=== PATIENT | male | born 1955 | race Caucasian/White ===

== ENCOUNTER → 2017-04-29 | Outpatient (CLI) | payer MEDICARE | END | disposition home or self-care (01) | LOC: LABPAT 10:05 | PROVIDERS: ATTEND Orthopaedic Surgery | DX: Z01.812 Encounter for preprocedural laboratory examination (principal) | CPT/HCPCS: 86850; 86900; 86901; 87070 ==

== ENCOUNTER 2017-05-09 05:45 | Inpatient (IN) | payer MEDICARE ==
[2017-04-29 15:03] VITALS: BMI 34.0
--- NOTE | 2017-05-08 13:39 | HP ---
DATE OF SURGERY: 05/09/2017 Everardo Charles is a 61-year-old patient seen with symptomatic right hip osteoarthritis. After treatment options discussed, he elected to proceed with direct anterior right total hip arthroplasty. Consent was obtained. Medical clearance was provided per Dr. Jan Foster. Cardiac clearance by Dr. Hawkins. Pulmonary clearance was provided by Dr. Acosta. Past medical history is congestive heart failure, chronic obstructive pulmonary disease, hypercholesterolemia, hypertension. Past surgical history is cholecystectomy, herniorrhaphy, lumbar surgery, hand surgery. DAILY MEDICATIONS: Xarelto, spironolactone, metoprolol, Lisinopril, Lasix, atorvastatin. ALLERGIES: PENICILLIN, LATEX, ZOSYN. SOCIAL HISTORY: Patient denies current tobacco use. PHYSICAL EVALUATION OF THE RIGHT HIP: There is very limited range of motion with severe pain. Positive hip impingement sign. Right lower extremity is about 1 cm shorter than the left. Straight leg raise is negative. Distal neurovascular exam is intact. Radiographs of the right hip reveal severe osteoarthritis. IMPRESSION: Right hip osteoarthritis. PLAN: Direct anterior right total hip arthroplasty. ESEQUIEL
[~2017-05-09 05:45] MED LIST: ACETAMINOPHEN TAB 500 MG TAB PO ONE; CLINDAMYCIN 900 MG in DEXTROSE 5% IN WATER 50 ML IVPB ONE; DEXAMETHASONE SOD PHOSPHATE 10 MG/ML 1 ML VIAL IV ONE; HYDROmorphone 1 MG/ML 1 ML SYRINGE IVP PRN; LACTATED RINGERS 1,000 ML IV SCH; MELOXICAM 7.5 MG TAB PO ONE; MIDAZOLAM 2 MG/2 ML VIAL IV PRN; ONDANSETRON 4 MG/2 ML VIAL IVP ONE; SCOPOLAMINE 1.5MG/72HR PATCH TRANSDERM ONE; TRANEXAMIC ACID 1,000 MG in SODIUM CHLORIDE 0.9% 100 ML IVPB ONE
[2017-05-09 07:14] LABS: Prothrombin Time 9.9 sec (9.0-12.0)
[2017-05-09] MEDS ORDERED: MIDAZOLAM 2 MG/2 ML VIAL ONE (07:29)
[2017-05-09] MEDS ORDERED: PROPOFOL 10 MG/ML 20 ML VIAL IV ONE (07:29)
[2017-05-09] MEDS ORDERED: SODIUM CHLORIDE 0.9% 100 ML BAG ONE (07:29)
[2017-05-09] MEDS ORDERED: ePHEDrine 50 MG/ML 1 ML AMP ONE (07:29)
[2017-05-09] MEDS ORDERED: TRANEXAMIC ACID 1,000 MG/10 ML VIAL ONE (07:29)
[2017-05-09] MEDS ORDERED: PHENYLEPHRINE-0.9% NACL SYG 1 MG/10 ML SYRINGE ONE (07:29)
[2017-05-09] MEDS ORDERED: ROPIVACAINE 246.25 MG, EPINEPHrine 0.5 MG, KETOROLAC 30 MG, cloNIDine HCL/PF 80 MCG, WA... MISCELLANE ONE ×5 (08:49)
[2017-05-09] MEDS ORDERED: NALOXONE 0.4 MG/ML 1 ML VIAL IV PRN (10:00)
[2017-05-09] MEDS ORDERED: HYDROmorphone 1 MG/ML 1 ML SYRINGE IVP PRN ×3 (10:00)
[2017-05-09] MEDS ORDERED: ONDANSETRON 4 MG/2 ML VIAL IVP PRN (10:00)
[2017-05-09] MEDS ORDERED: hydrOXYzine PAMOATE 25 MG CAP PO PRN (10:00)
--- NOTE | 2017-05-09 10:00 | P.OP ---
Date of Procedure: 05/09/17 Preoperative Diagnosis: Right hip osteoarthritis Postoperative Diagnosis: Right hip osteoarthritis Procedure(s) Performed: Direct anterior right total hip arthroplasty Implants: 1. Depuy Corail KA size 16 standard collar cementless femoral stem 2. Depuy pinnacle acetabular shell 60 mm multi hole press-fit 3. Depuy pinnacle polyethylene acetabular liner +4 neutral 36 mm ID 60 mm OD 4. Biolox delta ceramic femoral head +12 36 mm Anesthesia: local, spinal Surgeon: Avery Donald Chief Ultrasound Technologist #1: Eriberto Pérez Estimated Blood Loss (ml): 700 Pathology: other (Femoral head) Condition: stable Disposition: PACU Indications for Procedure: 61-year-old patient seen with symptomatic right hip osteoarthritis. After treatment options were discussed, he elected to proceed with right total hip arthroplasty. Operative Findings: See description of procedure Description of Procedure: The patient was taken to the operative suite. Patient underwent a spinal anesthetic by the department of anesthesia. Patient was then transferred to the [place] table. Patient was given preoperative IV antibiotics and TXA. Both lower extremities were placed in standard leg spars. The hip was then prepped and draped in the normal sterile orthopedic fashion. A standard anterior incision was made beginning 3 cm lateral and 1 cm distal to the ASIS extending 10 cm. Dissection was then carried down through the subcutaneous soft tissues down to the fascia overlying the tensor fascia krzysztof. An incision was now made through the fascia. Careful dissection was taken down exposing the tensor fascia krzysztof muscle. A Cobra retractor was now placed along the medial femoral neck and a second one along the lateral femoral neck. The venous circumflex vessels were now identified, cauterized and clipped. We identified the anterior hip capsule. An incision was made through the hip capsule along the lateral border. Tag sutures were then placed along the anterior capsule and lateral capsule. We then performed a capsulotomy. Retractors were now placed around the femoral neck itself. A Cobra retractor was now placed along the anterior acetabulum. Good exposure was now noted of the femoral head/neck complex. Residual labrum was debrided out. We placed the extremity into 3 turns of fine traction. We were then able to introduce a skid in between the femoral head and acetabulum. A placed a awl into the femoral head. We took 2 turns of traction off the extremity. Rotation was now released. The femoral head was then dislocated without difficulty. Additional releasing was performed of the capsule. The head was then reduced. All traction was released. A femoral neck cut was now made with a sagittal saw. It was completed with an osteotome at the lateral neck area. The femoral head was now removed without difficulty. The extremity was now rotated to 60 of external rotation. It was locked in position. Residual labrum was now debrided out. Serial reaming was performed of the acetabulum. Once we reached the appropriate size and a trial was position and fit nicely. The appropriate size was now chosen opened and made available. The wound was irrigated with pulse lavage mechanical irrigation. It was introduced into the acetabulum without difficulty. The C-arm/fluoroscopy was now brought into the operative field. We made sure we had a true AP pelvic view. We now under direct C-arm/ fluoroscopy introduced into the acetabular component with appropriate version and inclination. I difficulty time getting the cup to stick. I felt that some of the osteophytes that were significant were causing the acetabulum to feel like it was reamed deeper then actually was. I pulled the cup out. I began reaming and. I encountered a large cyst. At this point I trialed a 60 cup which fit nicely. I decided to go with a multilhole in case we needed screw fixation. The wound with pulse lavage mechanical irrigation. The C-arm was brought back into the operative field. The cup was introduced. Appropriate inclination inversion were noted on C-arm in the cup was seated with good fixation noted. An appropriate liner was introduced and clicked into position. It was felt to be stable. At this point retractors were removed. The extremity was now placed into 120 external rotation with no traction. The leg was now dropped to the ground and adducted. Appropriate retractors were now positioned along the proximal femur. We also placed our femoral look into position. Additional capsular releasing was performed to gain access to the proximal femur. We now used a box osteotome. A canal finder was now utilized. Serial broaching was now performed and he up with a size 15. I do not have good rotational stability but the canal was tight. I now opened up canal reamers. I reamed up to a 16. I seated a size 16 which did give us good overall stability including rotational stability. Appropriate calcar planing was performed. A trial head/neck was placed into position. The hip was now reduced. The C-arm/fluoroscopy was brought back into the operative field. A spot film was obtained of the nonoperative hip. A spot film was obtained of the trial components. Overlays were performed, we noted good overall alignment and positioning for determining leg length. The C-arm/fluoroscopy was pulled back. Retractors were repositioned and the hip was dislocated. The leg was again taken down to the ground and adducted. Appropriate retractors were repositioned as well as the femoral hook. All trial components were removed. The wound was irrigated with pulse lavage mechanical irrigation. The femoral implant was opened along with the femoral head. The femoral implant was introduced with good purchase and fixation noted. The femoral head was introduced with good positioning and fixation noted. Retractors were now removed. The hip was now reduced. There appeared be good positioning of the hip. Bipolar cautery had been utilized intermittently through the procedure for hemostasis. The wound was irrigated copiously with pulse lavage mechanical irrigation. A second gram of TXA was given. The fascia was repaired with Vicryl suture. The subcutaneous soft tissues were repaired in layers with Vicryl suture. The skin was approximated with pernio/Dermabond. Sterile dressings were applied. Patient was then awakened, transferred to a bed and taken to recovery in stable condition. Donald CAI assisted with the procedure.
--- NOTE | 2017-05-09 10:02 | FL ---
EXAMINATION TYPE: FL guidance operating room, XR Hip Limited RT DATE OF EXAM: 05/09/2017 CLINICAL HISTORY: Right hip replacement surgery. TECHNIQUE: Fluoroscopy. Intraoperative limited views right hip. COMPARISON: None. FINDINGS: Fluoroscopic guidance was provided during procedure hip replacement performed by Dr. Timoteo car. A total of 21 seconds of fluoroscopic time was utilized during the procedure and one spot intr aoperative image is acquired. Single intraoperative image acquired shows metallic hardware from total hip arthroplasty appears well seated on single frontal projection. IMPRESSION: As Above.
[2017-05-09] MEDS ORDERED: LACTATED RINGERS 1,000 ML IV ONE (10:12)
[2017-05-09] MEDS: traMADol 50 MG TAB PO SCH ×3 (12:14→21:54)
[2017-05-09] MEDS: LACTATED RINGERS 1,000 ML IV SCH ×2 (14:10→21:56)
[2017-05-09] MEDS: CLINDAMYCIN 900 MG in DEXTROSE 5% IN WATER 50 ML IVPB SCH ×2 (16:49)
[2017-05-09] MEDS: METOPROLOL TARTRATE 25 MG TAB PO SCH ×2 (16:58→21:54)
--- NOTE | 2017-05-09 18:46 | XR ---
EXAMINATION TYPE: XR chest 1V portable DATE OF EXAM: 05/09/2017 COMPARISON: 07/04/2016 HISTORY: Rehabilitation placement TECHNIQUE: Single frontal view of the chest is obtained. FINDINGS: There is a poor aspiration. There is no heart failure. There is some mild linear density a t the lung bases. There is no pleural effusion. IMPRESSION: Poor inspiration that is improved slightly compared to old exam. No heart failure.
[2017-05-09] MEDS: FORMOTEROL FUMARATE 20 MCG/2 ML NEBU INHALATION SCH (20:30)
[2017-05-09] MEDS ORDERED: CALCIUM CARB-VIT D 500MG-200UN 1 EACH TAB PO SCH (21:00)
[2017-05-09] MEDS: ALPRAZolam 0.25 MG TAB PO SCH (21:54)
[2017-05-09] MEDS: CALCIUM CARB-VIT D 500MG-200UN 1 EACH TAB PO SCH (21:54)
[2017-05-09] MEDS: SENNOSIDES-DOCUSATE SODIUM 1 EACH TAB PO SCH (21:54)
[2017-05-10] MEDS: CLINDAMYCIN 900 MG in DEXTROSE 5% IN WATER 50 ML IVPB SCH ×2 (00:15)
[2017-05-10] MEDS: HYDROcodone/APAP 7.5-325MG 1 EACH TAB PO PRN ×3 (06:36→20:22)
[2017-05-10 07:34] LABS: Basophils % (A) 0 %; CH 30.4; Eosinophils % (A) 0 %; HCT 29.9 % (39.0-53.0); HDW 2.03; HGB 9.6 gm/dL (13.0-17.5); Luc # (Auto) 0.14; Luc % (Auto) 1; Lymphocytes # (A) 2.2 k/uL (1.0-4.8); Lymphocytes % (A) 21 %; MCH 30.7 pg (25.0-35.0); MCHC 32.2 g/dL (31.0-37.0); MCV 95.5 fL (80.0-100.0); Mean Platelet Volume 7.3; Monocytes # (A) 0.8 k/uL (0-1.0); Monocytes % (A) 8 %; Neutrophils # (A) 7.3 k/uL (1.3-7.7); Neutrophils % (A) 70 %; RBC 3.13 m/uL (4.30-5.90); RDW 14.1 % (11.5-15.5); WBC 10.4 k/uL (3.8-10.6); WBC (Perox) 10.69
[2017-05-10] MEDS: LISINOPRIL 2.5 MG TAB PO SCH (08:26)
[2017-05-10] MEDS: FUROSEMIDE 20 MG TAB PO SCH (08:26)
[2017-05-10] MEDS: METOPROLOL TARTRATE 25 MG TAB PO SCH ×3 (08:28→21:53)
[2017-05-10] MEDS: LACTATED RINGERS 1,000 ML IV SCH ×3 (08:29→17:44)
[2017-05-10] MEDS: MELOXICAM 7.5 MG TAB PO SCH (08:32)
[2017-05-10] MEDS: ENOXAPARIN 40 MG/0.4 ML SYRINGE SQ SCH (08:32)
[2017-05-10] MEDS: ALPRAZolam 0.25 MG TAB PO SCH ×2 (08:32→21:52)
[2017-05-10] MEDS: FAMOTIDINE 20 MG TAB PO SCH (08:32)
[2017-05-10] MEDS: MAGNESIUM OXIDE 400 MG TAB PO SCH (08:32)
[2017-05-10] MEDS: traMADol 50 MG TAB PO SCH ×4 (08:32→21:52)
[2017-05-10] MEDS: TIOTROPIUM 18 MCG/PUFF INHALER INHALATION SCH (09:13)
[2017-05-10] MEDS: FORMOTEROL FUMARATE 20 MCG/2 ML NEBU INHALATION SCH ×2 (09:13→20:04)
[2017-05-10] MEDS: MULTIVITAMINS, THERA 1 EACH TAB PO SCH (12:59)
--- NOTE | 2017-05-10 12:59 | P.PN ---
Subjective Principal diagnosis: Status post right total hip arthroplasty Patient is seen today resting in his hospital chair, he appears comfortable. His tolerated his diet well. He denies any chest pain, shortness of breath, nausea, fever chills. He is ambulating with therapy. Objective - Vital Signs Vital signs: Vital Signs Temp 97.0 F L 05/10/17 07:00 Pulse 80 05/10/17 09:25 Resp 16 05/10/17 07:00 BP 86/52 05/10/17 09:27 Pulse Ox 93 L 05/10/17 07:00 Intake & Output 05/09/17 05/10/17 05/10/17 18:59 06:59 18:59 Intake Total 2346 1150 Output Total 1500 2400 Balance 846 1150 -2400 Weight 104.326 kg Intake: IV 1366 Intake, IV Titration 300 1150 Amount Clindamycin 900 mg In 50 Dextrose 5% in Water 50 ml @ 100 mls/hr IVPB Q8HR [facility] Rx#:[id number] Lactated Ringers 1,000 ml 300 1100 @ 100 mls/hr IV .Q10H [facility] Rx#:[id number] Oral 680 Output: Urine 800 2400 Uretheral ([place]) 2400 Estimated Blood Loss 700 Other: Voiding Method Indwelling Catheter Indwelling Catheter Indwelling Catheter # Voids 1 # Bowel Movements 1 - Exam Right lower extremity: Incision is clean, dry and intact. Minimal soft tissue swelling and ecchymosis present on the medial and lateral aspects of the incision. Calf is soft, no tenderness with palpation. Plantar flexion, dorsiflexion, EHL, FHL are intact. Sensory exam to light touch throughout the extremity is intact. Cap refills less than 3 seconds. - Labs CBC & Chem 7: 05/10/17 06:46 Labs: Abnormal Lab Results - Last 24 Hours (Table) 05/10/17 Range/Units 06:46 RBC 3.13 L (4.30-5.90) m/uL Hgb 9.6 L (13.0-17.5) gm/dL Hct 29.9 L (39.0-53.0) % Assessment and Plan Plan: Assessment: 1. Postop day #1 status post right total hip arthroplasty Plan: 1. Pain control, continue supportive oral medication 2. Continue therapy 3. Ice and elevate/daily dressing changes 4. Encourage incentive spirometer 5. GI and DVT prophylaxis, patient did receive subcutaneous Lovenox today" restart Xarelto 20mg today 6. Medical recommendations 7. Discharge planning: Patient is interested in going to rehab, will likely stay 2 more nights Time with Patient: Less than 30
[2017-05-10] MEDS: SPIRONOLACTONE 25 MG TAB PO SCH (16:26)
[2017-05-10] MEDS: ATORVASTATIN 20 MG TAB PO SCH (17:44)
[2017-05-10] MEDS: CALCIUM CARB-VIT D 500MG-200UN 1 EACH TAB PO SCH (20:22)
[2017-05-10] MEDS: SENNOSIDES-DOCUSATE SODIUM 1 EACH TAB PO SCH (21:52)
[2017-05-11] MEDS: HYDROcodone/APAP 7.5-325MG 1 EACH TAB PO PRN ×3 (02:49→16:35)
[2017-05-11] MEDS: MULTIVITAMINS, THERA 1 EACH TAB PO SCH (09:17)
[2017-05-11] MEDS: FUROSEMIDE 20 MG TAB PO SCH (09:17)
[2017-05-11] MEDS: ALPRAZolam 0.25 MG TAB PO SCH ×2 (09:17→20:43)
[2017-05-11] MEDS: MAGNESIUM OXIDE 400 MG TAB PO SCH (09:17)
[2017-05-11] MEDS: FAMOTIDINE 20 MG TAB PO SCH (09:17)
[2017-05-11] MEDS: MELOXICAM 7.5 MG TAB PO SCH (09:17)
[2017-05-11] MEDS: METOPROLOL TARTRATE 25 MG TAB PO SCH ×3 (09:17→22:09)
[2017-05-11] MEDS: ENOXAPARIN 40 MG/0.4 ML SYRINGE SQ SCH (09:17)
[2017-05-11] MEDS: LISINOPRIL 2.5 MG TAB PO SCH (09:18)
[2017-05-11] MEDS: TIOTROPIUM 18 MCG/PUFF INHALER INHALATION SCH (09:26)
[2017-05-11] MEDS: FORMOTEROL FUMARATE 20 MCG/2 ML NEBU INHALATION SCH ×2 (09:26→19:11)
[2017-05-11] MEDS: traMADol 50 MG TAB PO SCH ×4 (10:05→22:09)
--- NOTE | 2017-05-11 11:28 | P.PN ---
Subjective Principal diagnosis: Status post right total hip arthroplasty Patient is seen today resting in his hospital chair, he appears comfortable. He denies any chest pain, shortness of breath, nausea, fever chills. Objective - Vital Signs Vital signs: Vital Signs Temp 97.2 F L 05/11/17 07:00 Pulse 88 05/11/17 09:37 Resp 16 05/11/17 07:00 BP 108/61 05/11/17 09:15 Pulse Ox 97 05/11/17 07:00 Intake & Output 05/10/17 05/11/17 05/11/17 18:59 06:59 18:59 Intake Total 800 1200 120 Output Total 2400 1800 Balance -1600 -600 120 Intake: Intake, IV Titration 800 1200 Amount Lactated Ringers 1,000 ml 800 1200 @ 100 mls/hr IV .Q10H [facility] Rx#:[id number] Oral 120 Output: Urine 2400 1800 Uretheral ([place]) 2400 Other: Voiding Method Indwelling Catheter # Voids 1 1 1 # Bowel Movements 1 - Exam Right lower extremity: Incision is clean, dry and intact. Minimal soft tissue swelling and ecchymosis present on the medial and lateral aspects of the incision. Calf is soft, no tenderness with palpation. Plantar flexion, dorsiflexion, EHL, FHL are intact. Sensory exam to light touch throughout the extremity is intact. Cap refills less than 3 seconds. - Labs CBC & Chem 7: 05/10/17 06:46 Assessment and Plan Plan: Assessment: 1. Postop day #2 status post right total hip arthroplasty Plan: 1. Pain control, continue supportive oral medication 2. Continue therapy 3. Ice and elevate/daily dressing changes 4. Encourage incentive spirometer 5. GI and DVT prophylaxis, continue Lovenox 6. Medical recommendations 7. Discharge planning: Discharge to rehab tomorrow Time with Patient: Less than 30
--- NOTE | 2017-05-11 11:31 | P.DS ---
Providers Date of admission: 05/09/17 05:45 Attending physician: Avery Donald Consults: 05/09/17 10:00 Consult Physician Routine Consulting Provider: Jan Foster Reason/Comments: Medical management Do you want consulting provider notified?: Yes Primary care physician: Jan Foster [facility] Course: Date of admission: 05/09/2017 Date of discharge: 05/12/2017 Admission diagnosis: Status post right total hip arthroplasty Discharge diagnosis: Same Attending physician: Dr. Donald Surgical procedures: Right total hip arthroplasty Brief history: Patient is a 61-year-old male with a history of with progressive primary right hip osteoarthritis. At this point patient has failed conservative treatment measures and has opted to proceed with a elective right total hip arthroplasty. Hospital course: Details of patient's surgery can be found in operative report. Patient tolerated the procedure well and was subsequently transported to orthopedic floor. Patient's orthopeidc and medical care was provided daily. Patient had daily laboratory tests performed for evaluation of overall blood counts. Patient had daily physical therapy to include strengthening range of motion as well as education with walker ambulation. Patient was treated with Lovenox for their postoperative DVT prophylaxis during their inpatient stay. Patient was noted to have a relatively uneventful postoperative course. Patient reported satisfactory pain control with oral pain medications by postoperative day 0. Patient showed satisfactory progress with physical therapy. Patient moved steadily through the program and had no difficulty meeting the goals by postoperative day 3. Given patient's otherwise satisfactory course and having met physical therapy goals, plan is to discharge patient rehab on postoperative day 3. Discharge condition/disposition: Patient will be discharged rehab in stable condition. Discharge medications: Instructions are given on resumption of patient's normal daily medications per primary care recommendation, in addition patient will be prescribed [place] 7.5 mg/325 mg, tramadol 50 mg, Colace 100 mg, Pepcid 20 mg. Discharge instructions: 1. Wound care and infection precautions, keep incision dry and covered while showering, no lotions, creams, moisturizers. No soaking, tubs, pools, hottubs. Do not scrub over the incision. 2. Weight-bear as tolerated with walker / cane until follow-up. 3. Ice and elevate when necessary. Do not exceed 20 minutes per hour with ice pack. 4. Utilize compression sleeve until seen at first follow up appointment. 5. Visiting nursing care. 6. Home physical therapy. 7. Pain meds and anticoagulants per prescription. 8. Pain medication has potential to cause constipation. Increase oral fluid and fiber intake. Contact primary care provider if you have not had a bowel movement within 48 hours after discharge 9. No anti-inflammatory medication until discussed at first post operative visit, this including Motrin, Aleve, Mobic, Diclofenac. 10. Follow up in office at 2 weeks postop with Donald Pérez PA-C 11. Follow up with your primary care doctor 7-10 days after discharge. 12. Contact [facility] with any questions, . Procedures: Right total hip arthroplasty Patient Condition at Discharge: Good Plan - Discharge Summary New Discharge Prescriptions: New ALPRAZolam [Xanax] 0.25 mg PO BID PRN #40 tab PRN Reason: Anxiety Docusate [Colace] 100 mg PO DAILY #30 capsule Famotidine [Pepcid] 20 mg PO DAILY #30 tablet HYDROcodone/APAP 7.5-325MG [Dateland 7.5] 1 - 2 each PO Q6HR PRN #60 tab PRN Reason: Pain traMADol HCl [Ultram] 50 mg PO Q6H PRN #40 tab PRN Reason: Pain No Action Lisinopril [Zestril] 2.5 mg PO DAILY@0700 Furosemide [Lasix] 20 mg PO DAILY@0700 Calcium Carbonate/Vitamin D3 [Caltrate 600 Plus D3 Tablet] 1 tab PO BID Spironolactone [Aldactone] 25 mg PO DAILY@1500 Rivaroxaban [Xarelto] 20 mg PO DAILY@1900 Atorvastatin [Lipitor] 20 mg PO DAILY@1500 Metoprolol Tartrate [Lopressor] 25 mg PO TID Tiotropium Br/Olodaterol HCl [Stiolto Respimat Inhal [place]] 1 spray INHALATION RT-DAILY Magnesium 500 mg PO DAILY methylPREDNISolone Dose Pack [Medrol Dose Pack] See Taper PO DIRECTED Discharge Medication List Calcium Carbonate/Vitamin D3 [Caltrate 600 Plus D3 Tablet] 1 tab PO BID [History] Furosemide [Lasix] 20 mg PO DAILY@0700 07/10/14 [History] Lisinopril [Zestril] 2.5 mg PO DAILY@0700 07/10/14 [History] Atorvastatin [Lipitor] 20 mg PO DAILY@1500 08/05/16 [History] Rivaroxaban [Xarelto] 20 mg PO DAILY@1900 05/14/16 [History] Spironolactone [Aldactone] 25 mg PO DAILY@1500 05/14/16 [History] Magnesium 500 mg PO DAILY 04/29/17 [History] Metoprolol Tartrate [Lopressor] 25 mg PO TID 04/29/17 [History] Tiotropium Br/Olodaterol HCl [Stiolto Respimat Inhal [place]] 1 spray INHALATION RT-DAILY 04/29/17 [History] methylPREDNISolone Dose Pack [Medrol Dose Pack] See Taper PO DIRECTED [History] ALPRAZolam [Xanax] 0.25 mg PO BID PRN #40 tab 05/12/17 [Rx] Docusate [Colace] 100 mg PO DAILY #30 capsule 05/12/17 [Rx] Famotidine [Pepcid] 20 mg PO DAILY #30 tablet 05/12/17 [Rx] HYDROcodone/APAP 7.5-325MG [Dat[place] 7.5] 1 - 2 each PO Q6HR PRN #60 tab 05/12/17 [ Rx] traMADol HCl [Ultram] 50 mg PO Q6H PRN #40 tab 05/12/17 [Rx] Follow up Appointment(s)/Referral(s): Eriberto Pérez PAC [PHYSICIAN TEST MAN] - 2 Weeks Ambulatory/Diagnostic Orders: Complete Blood Count w/diff [LAB.AMB] Location: Determined By Patient Comprehensive Metabolic Panel [LAB.AMB] Location: Determined By Patient Activity/Diet/Wound Care/Special Instructions: Orthopedic Discharge Instructions: 1. Wound care and infection precautions, keep incision dry and covered while showering, no lotions, creams, moisturizers. No soaking, pools, hot tubs. Do not scrub over incision. 2. Weight-bear as tolerated with walker / cane until follow-up. 3. Ice and elevate when necessary. Do not exceed 20 minutes per hour with ice pack. 4. Utilize compression sleeve until seen at first follow up appointment. 5. Visiting nursing care. 6. Home physical therapy. 7. Pain meds and anticoagulants per prescription. 8. Pain medication has potential to cause constipation. Increase oral fluid and fiber intake. Contact primary care provider if you have not had a bowel movement within 48 hours after discharge. 9. No anti-inflammatory medication until discussed at first post operative visit, this including Motrin, Aleve, Mobic, Diclofenac. 10. Follow up in office at 2 weeks postop with Donald Pérez PA-C 11. Follow up with your primary care doctor 7-10 days after discharge. 12. Contact [facility] with any questions, . Discharge Disposition: TRANSFER TO SNF/ECF
[2017-05-11] MEDS: LACTATED RINGERS 1,000 ML IV SCH (12:14)
--- NOTE | 2017-05-11 14:45 | P.PN ---
Subjective 61-year-old being seen on rounds this morning is sitting up in a chair. Patient is postop right hip total arthroplasty done for progressive primary right hip osteoarthritis. Patient failed conservative treatment measures and not to proceed with an elective right total hip arthroplasty. There's been no postop events. Patient's denying chest pain dizziness lightheadedness or shortness of breath. Discharge planning in progress. Patient plans on going to subacute rehab for rehab. Objective - Vital Signs Vital signs: Vital Signs Temp 97.2 F L 05/11/17 07:00 Pulse 88 05/11/17 09:37 Resp 16 05/11/17 07:00 BP 108/61 05/11/17 09:15 Pulse Ox 97 05/11/17 07:00 Intake & Output 05/10/17 05/11/17 05/11/17 18:59 06:59 18:59 Intake Total 800 1200 120 Output Total 2400 1800 Balance -1600 -600 120 Intake: Intake, IV Titration 800 1200 Amount Lactated Ringers 1,000 ml 800 1200 @ 100 mls/hr IV .Q10H [facility] Rx#:[id number] Oral 120 Output: Urine 2400 1800 Uretheral ([place]) 2400 Other: Voiding Method Indwelling Catheter # Voids 1 1 1 # Bowel Movements 1 - Exam Physical exam 61-year-old male sitting up in a patient states pain medication effective for pain control has been up working with physical therapy Lungs essentially clear on room air Heart S1-S2 audible regular Abdomen soft nontender reports no nausea vomiting Extremities dressing to the right hip dry no edema noted - Labs CBC & Chem 7: 05/10/17 06:46 Assessment and Plan Plan: Impression History of progressive primary right hip osteoarthritis Postop right total hip arthroplasty Hypertension essential Symptomatic right hip osteoarthritis Plan Continue postop orthopedic care per orthopedic service Resume home meds as appropriate Monitor blood pressure heart rate address as indicated DVT and GI prophylaxis Pain control Discharge plan and progress agree patient would benefit from subacute rehab The above impression and plan of care have been discussed and directed by signing physician. Digna Howell nurse practitioner acting as scribe for signing physician.
--- NOTE | 2017-05-11 15:15 | CONS ---
DATE OF SERVICE: 05/10/2017 CHIEF COMPLAINT: 61-year-old white male status post right total hip arthroscopy for medical management service. The patient has a history of COPD, congestive heart failure, hypercholesterolemia, hypertension, tracheostomy x2 in the past. PAST SURGICAL HISTORY: Cholecystectomy, herniorrhaphy, lumbar surgery, hand surgery. MEDICATIONS: Xarelto, spironolactone, metoprolol, lisinopril, Lasix, atorvastatin. ALLERGIES: PENICILLIN, LATEX, ZOSYN. SOCIAL HISTORY: Current nicotine addiction. REVIEW OF SYSTEMS: 14 point review of systems is negative except as mentioned in HPI. CARDIOVASCULAR: S1/S2. LUNGS: Transmitted upper airway sounds. GI: Soft, nontender. HEMATOLOGY: Negative Homans. PSYCH: Fair mood and affect. NEUROLOGIC: Alert and oriented x3. O2 is 97% on room air, blood pressure 108/50s-60s, heart rate 88, temperature 97.2. ASSESSMENT: 1. Status post right hip arthroscopy. 2. Dyslipidemia. 3. Chronic pain syndrome. 4. Chronic obstructive pulmonary disease. MTDD
[2017-05-11] MEDS: SPIRONOLACTONE 25 MG TAB PO SCH (16:23)
[2017-05-11] MEDS: ATORVASTATIN 20 MG TAB PO SCH (18:18)
[2017-05-11 20:34] LABS: Glucose,Whole Blood 128 mg/dL (75-99)
[2017-05-11] MEDS: SENNOSIDES-DOCUSATE SODIUM 1 EACH TAB PO SCH (20:43)
[2017-05-11] MEDS: CALCIUM CARB-VIT D 500MG-200UN 1 EACH TAB PO SCH (20:43)
[2017-05-12] MEDS: HYDROcodone/APAP 7.5-325MG 1 EACH TAB PO PRN (01:05)
[2017-05-12] MEDS: LACTATED RINGERS 1,000 ML IV SCH ×2 (01:44→07:18)
[2017-05-12] MEDS: TIOTROPIUM 18 MCG/PUFF INHALER INHALATION SCH (07:12)
[2017-05-12] MEDS: FORMOTEROL FUMARATE 20 MCG/2 ML NEBU INHALATION SCH (07:12)
[2017-05-12 07:18] VITALS: RESP 12; TEMP 98.2
[2017-05-12] MEDS: FUROSEMIDE 20 MG TAB PO SCH (07:18)
[2017-05-12] MEDS: LISINOPRIL 2.5 MG TAB PO SCH (07:18)
[2017-05-12 08:08] LABS: Basophils % (A) 0 %; CH 30.1; CHCM 31.8; Eosinophils # (A) 0.2 k/uL (0-0.7); Eosinophils % (A) 2 %; HCT 24.8 % (39.0-53.0); HDW 2.04; Luc # (Auto) 0.13; Luc % (Auto) 2; Lymphocytes % (A) 26 %; MCH 30.5 pg (25.0-35.0); MCHC 32.1 g/dL (31.0-37.0); MCV 94.9 fL (80.0-100.0); Monocytes # (A) 0.6 k/uL (0-1.0); Monocytes % (A) 7 %; Neutrophils % (A) 63 %; RBC 2.62 m/uL (4.30-5.90); RDW 13.7 % (11.5-15.5)
[2017-05-12] MEDS: METOPROLOL TARTRATE 25 MG TAB PO SCH (08:55)
[2017-05-12] MEDS: traMADol 50 MG TAB PO SCH ×2 (08:59→13:02)
[2017-05-12] MEDS: MAGNESIUM OXIDE 400 MG TAB PO SCH (09:00)
[2017-05-12] MEDS: FAMOTIDINE 20 MG TAB PO SCH (09:00)
[2017-05-12] MEDS: ALPRAZolam 0.25 MG TAB PO SCH (09:00)
[2017-05-12] MEDS: ENOXAPARIN 40 MG/0.4 ML SYRINGE SQ SCH (09:00)
[2017-05-12] MEDS: MELOXICAM 7.5 MG TAB PO SCH (09:00)
--- NOTE | 2017-05-12 09:00 | P.PN ---
Subjective Principal diagnosis: Status post right total hip arthroplasty Patient is seen today resting in his hospital chair, he appears comfortable. He states he feels a little off today, some stomach upset. He denies any chest pain , shortness of breath Objective - Vital Signs Vital signs: Vital Signs Temp 98.2 F 05/12/17 07:00 Pulse 80 05/12/17 07:23 Resp 12 05/12/17 07:00 BP 99/63 05/12/17 07:00 Pulse Ox 94 L 05/12/17 07:00 Intake & Output 05/11/17 05/12/17 05/12/17 18:59 06:59 18:59 Intake Total 620 1920 Output Total 250 Balance 620 1920 -250 Intake: Oral 620 1920 Output: Urine 250 Other: Voiding Method Urinal # Voids 1 2 2 # Bowel Movements 1 - Exam Right lower extremity: Incision is clean, dry and intact. Minimal soft tissue swelling and ecchymosis present on the medial and lateral aspects of the incision. Calf is soft, no tenderness with palpation. Plantar flexion, dorsiflexion, EHL, FHL are intact. Sensory exam to light touch throughout the extremity is intact. Cap refills less than 3 seconds. - Labs CBC & Chem 7: 05/12/17 06:35 Labs: Abnormal Lab Results - Last 24 Hours (Table) 05/11/17 05/12/17 Range/Units 20:33 06:35 RBC 2.62 L (4.30-5.90) m/uL Hgb 8.0 L D (13.0-17.5) gm/dL Hct 24.8 L (39.0-53.0) % POC Glucose (mg/dL) 128 H (75-99) mg/dL Assessment and Plan Plan: Assessment: 1. Postop day #3 status post right total hip arthroplasty Plan: 1. Pain control, continue supportive oral medication 2. Continue therapy 3. Ice and elevate/daily dressing changes 4. Encourage incentive spirometer 5. GI and DVT prophylaxis, will begin Xarelto 20mg after discharge 6. Medical recommendations 7. Discharge planning: Discharge to rehab today Time with Patient: Less than 30
[2017-05-12 10:36] VITALS: BP 115/74; PULSE 108
[2017-05-12] MEDS: MULTIVITAMINS, THERA 1 EACH TAB PO SCH (13:02)
[2017-05-12] MEDS ORDERED: METOPROLOL TARTRATE 25 MG TAB PO SCH (21:00)
== END 2017-05-12 16:02 | DRG 470 ==
LOC: 2ORMAIN 05:45 → 3SUR 09:50
PROVIDERS: ADMIT Orthopaedic Surgery; ATTEND Orthopaedic Surgery
PROC: 0SR904A Replacement of Right Hip Joint with Ceramic on Polyethylene Synthetic Substitute, Uncemented, Open Approach (ICD-10-PCS; principal; 2017-05-09 07:30)
DX: M16.11 Unilateral primary osteoarthritis, right hip (principal); I11.0 Hypertensive heart disease with heart failure; I50.9 Heart failure, unspecified; J44.9 Chronic obstructive pulmonary disease, unspecified; E78.00 Pure hypercholesterolemia, unspecified; F17.200 Nicotine dependence, unspecified, uncomplicated; E78.5 Hyperlipidemia, unspecified; G89.4 Chronic pain syndrome; Z79.01 Long term (current) use of anticoagulants; Z79.899 Other long term (current) drug therapy; Z90.49 Acquired absence of other specified parts of digestive tract; Z88.1 Allergy status to other antibiotic agents; Z91.040 Latex allergy status; Z88.0 Allergy status to penicillin; Z91.048 Other nonmedicinal substance allergy status
CPT/HCPCS: 71010; 73501; 85025; 85610; 86850; 86900; 86901; 88300; 94640; 94760

== ENCOUNTER → 2019-03-16 | Outpatient (CLI) | payer MEDICARE | LOC: LABPAT 10:31 | PROVIDERS: ATTEND Orthopaedic Surgery | DX: Z01.812 Encounter for preprocedural laboratory examination (principal); M16.12 Unilateral primary osteoarthritis, left hip | CPT/HCPCS: 86850; 86900; 86901; 87070 ==

== ENCOUNTER 2019-03-26 08:46 | Inpatient (IN) | payer MEDICARE ==
--- NOTE | 2019-03-25 13:24 | HP ---
HISTORY AND PHYSICAL REASON FOR ADMISSION: Surgery scheduled 03/26/2019 HISTORY OF PRESENT ILLNESS: Everardo Charles is a 63-year-old patient seen with symptomatic left hip osteoarthritis. We discussed options for treatment. He elected to proceed with left total hip arthroplasty. Consent regarding the procedure was obtained. Medical clearance was provided by Dr. Foster. Cardiac clearance was provided by Dr. Hawkins. PAST MEDICAL HISTORY: Congestive heart failure, COPD, hypercholesterolemia, hypertension. PAST SURGICAL HISTORY: Cholecystectomy, lumbar spine surgery, right total hip arthroplasty. MEDICATIONS: Lasix, lisinopril, metoprolol, spironolactone, Xarelto, atorvastatin. ALLERGIES: PENICILLIN, LATEX, AND ZOSYN. SOCIAL HISTORY: Denies current tobacco use. PHYSICAL EXAMINATION: Evaluation of the left hip: Limited range of motion with severe pain. Diffuse tenderness. Straight leg raise negative. Positive hip impingement sign. Distal neurovascular exam intact. RADIOGRAPHS: Radiographs of the left hip revealed severe osteoarthritic changes. IMPRESSION: 1. Left hip osteoarthritis. 2. Hypertension. 3. Hyperlipidemia. 4. Coronary artery disease. PLAN: Left total hip arthroplasty. Surgery 03/26/2019. MMODL / IJN: [id number] /
[~2019-03-26 08:46] MED LIST changes: -ACETAMINOPHEN TAB 500 MG TAB PO ONE; -CLINDAMYCIN 900 MG in DEXTROSE 5% IN WATER 50 ML IVPB ONE; -DEXAMETHASONE SOD PHOSPHATE 10 MG/ML 1 ML VIAL IV ONE; +HYDROmorphone 0.5 MG/0.5 ML SYRINGE IVP PRN; -HYDROmorphone 1 MG/ML 1 ML SYRINGE IVP PRN; -LACTATED RINGERS 1,000 ML IV SCH; -MELOXICAM 7.5 MG TAB PO ONE; -TRANEXAMIC ACID 1,000 MG in SODIUM CHLORIDE 0.9% 100 ML IVPB ONE
[2019-03-26] MEDS ORDERED: LACTATED RINGERS 1,000 ML IV ONE ×3 (09:42→13:06)
[2019-03-26] MEDS ORDERED: LIDOCAINE 1% 20 ML VIAL (10MG/ML) FOR IV START INTRADERMA ONE (09:42)
[2019-03-26] MEDS ORDERED: ROPIVACAINE 246.25 MG, EPINEPHrine 0.5 MG, KETOROLAC 30 MG, cloNIDine HCL/PF 80 MCG, WA... MISCELLANE ONE ×5 (09:43)
[2019-03-26 09:48] LABS: INR 0.9 (<1.2); Prothrombin Time 9.8 sec (9.0-12.0)
[2019-03-26] MEDS ORDERED: MELOXICAM 7.5 MG TAB PO ONE (09:53)
[2019-03-26] MEDS ORDERED: TRANEXAMIC ACID 1,000 MG in SODIUM CHLORIDE 0.9% 100 ML IVPB ONE ×4 (10:00)
[2019-03-26] MEDS ORDERED: ceFAZolin IN SWFI 2 GM/20 ML SYRINGE IVP ONE (10:00)
[2019-03-26] MEDS ORDERED: ACETAMINOPHEN TAB 500 MG TAB PO ONE (10:00)
[2019-03-26] MEDS ORDERED: TRANEXAMIC ACID 1,000 MG/10 ML VIAL ONE (10:16)
[2019-03-26] MEDS ORDERED: SODIUM CHLORIDE 0.9% 100 ML BAG ONE (10:16)
[2019-03-26] MEDS ORDERED: ePHEDrine SULFATE/0.9% NACL/PF 50 MG/5 ML SYRINGE IV ONE (10:16)
[2019-03-26] MEDS ORDERED: PHENYLEPHRINE-0.9% NACL SYG 1 MG/10 ML SYRINGE ONE (10:16)
[2019-03-26] MEDS ORDERED: PROPOFOL 10 MG/ML 20 ML VIAL IV ONE (10:16)
[2019-03-26] MEDS ORDERED: fentaNYL (PF) 50 MCG/ML 2 ML AMP ONE (10:16)
[2019-03-26] MEDS ORDERED: MIDAZOLAM 2 MG/2 ML VIAL ONE (10:16)
[2019-03-26] MEDS ORDERED: ceFAZolin 3,000 MG in SODIUM CHLORIDE 0.9% IRRIGATIO 3,000 ML IRRIGATION ONE (10:24)
[2019-03-26] MEDS ORDERED: HYDROcodone/APAP 7.5-325MG 1 EACH TAB PO PRN (12:31)
[2019-03-26] MEDS ORDERED: ONDANSETRON 4 MG/2 ML VIAL IVP PRN (12:31)
[2019-03-26] MEDS ORDERED: NALOXONE 0.4 MG/ML 1 ML VIAL IV PRN (12:31)
[2019-03-26] MEDS ORDERED: HYDROmorphone 0.5 MG/0.5 ML SYRINGE IVP PRN ×2 (12:31)
[2019-03-26] MEDS ORDERED: HYDROmorphone 1 MG/ML 1 ML SYRINGE IVP PRN (12:31)
--- NOTE | 2019-03-26 12:31 | P.OP ---
Date of Procedure: 03/26/19 Preoperative Diagnosis: Left hip osteoarthritis Postoperative Diagnosis: Left hip osteoarthritis Procedure(s) Performed: Direct anterior left total hip arthroplasty Implants: 1. Depuy Corail KA size 15 with collar press-fit femoral stem 2. Depuy pinnacle 58 mm press-fit acetabular shell 3. Depuy pinnacle polyethylene acetabular liner neutral 36 mm ID 58 mm OD 4. Biolox delta ceramic femoral head 36 mm +1.5 Anesthesia: local, spinal Surgeon: Avery Donald Director Online Marketing #1: Eriberto Pérez Estimated Blood Loss (ml): 800 Pathology: none sent (Femoral head) Condition: stable Disposition: PACU Indications for Procedure: 63-year-old patient seen with symptomatic left hip osteoarthritis. After treatment options were discussed, he elected to proceed with total hip arthroplasty. Operative Findings: See description of procedure Description of Procedure: The patient was taken to the operative suite. Patient underwent a spinal anesthetic by the department of anesthesia. Patient was then transferred to the [place] table. Patient was given preoperative IV antibiotics and TXA. Both lower extremities were placed in standard leg spars. The hip was then prepped and d raped in the normal sterile orthopedic fashion. A standard anterior incision was made beginning 3 cm lateral and 1 cm distal to the ASIS extending 10 cm. Dissection was then carried down through the subcutaneous soft tissues down to the fascia overlying the tensor fascia krzysztof. An incision was now made through the fascia. Careful dissection was taken down exposing the tensor fascia krzysztof muscle. A Cobra retractor was now placed along the medial femoral neck and a second one along the lateral femoral neck. The venous circumflex vessels were now identified, cauterized and clipped. We identified the anterior hip capsule. An incision was made through the hip capsule along the lateral border. I performed a partial anterior capsulectomy. Retractors were now placed around the femoral neck itself. A femoral neck cut was now made with a sagittal saw. It was completed with an osteotome at the lateral neck area. The femoral head was now removed without difficulty. The extremity was now rotated to 45 of external rotation. It was locked in position. Residual labrum was now debrided out. Serial reaming was performed of the acetabulum while Donald CAI assisted holding an anterior retractor for exposure. Once we reached the appropriate size and a trial was position and fit nicely. The appropriate size was now chosen opened and made available. It was introduced into the acetabulum without difficulty. The C-arm/fluoroscopy was now brought into the operative field. We made sure we had a true AP pelvic view. We now under direct C- arm/fluoroscopy introduced into the acetabular component with appropriate version and inclination. I held the cup in appropriate position well Donald CAI used a mallet to seat the acetabular component. I noted the component now to be well seated and stable. Acetabular cup introduce her was removed. The C-arm was pulled back. An appropriate liner was introduced and clicked into position. It was felt to be stable. At this point retractors were removed. The extremity was now placed into 120 external rotation with no traction. The leg was now dropped to the ground and adducted. Appropriate retractors were now positioned along the proximal femur. We also placed our femoral look into position. Additional capsular releasing was performed to gain access to the proximal femur. We now used a box osteotome. A canal finder was now utilized. Serial broaching was now performed with the assistance of Donald CAI tapping the broaches down with a mallet while held the broach in appropriate rotation and position. This was done until we reached the appropriate size with good overall rotational stability. Appropriate calcar planing was performed. A trial head/neck was placed into position. The hip was now reduced. The C- arm/fluoroscopy was brought back into the operative field. A spot film was obtained of the nonoperative hip. A spot film was obtained of the trial components. Overlays were performed, we noted good overall alignment and positioning for determining leg length. The C-arm/fluoroscopy was pulled back. Retractors were repositioned and the hip was dislocated. The leg was again taken down to the ground and adducted. Appropriate retractors were repositioned as well as the femoral hook. All trial components were removed. The femoral implant was opened along with the femoral head. The femoral implant was introduced on the appropriate handle into our pre-broached area. I held the component position well Donald CAI used a mallet to seat the femoral component. The femoral component was now noted to be well seated and stable.. The femoral head was introduced with good positioning and fixation noted. Retractors were now removed. The hip was now reduced. There appeared be good positioning of the hip confirmed on intraoperative fluoroscopy. Spot films were obtained to document this. A second gram of TXA was given. The deep and superficial soft tissues were infiltrated with local analgesic. Bipolar cautery had been utilized intermittently through the procedure for hemostasis. The wound was irrigated copiously with pulse lavage mechanical irrigation. The fascia was repaired with Vicryl suture. The subcutaneous soft tissues were repaired in layers with Vicryl suture. The skin was approximated with pernio/Dermabond. Sterile dressings were applied. Patient was then awakened, transferred to a bed and taken to recovery in stable condition. Donald CAI assisted with the complex procedure.
--- NOTE | 2019-03-26 12:38 | FL ---
EXAMINATION TYPE: FL guidance operating room, XR Hip Limited LT DATE OF EXAM: 03/26/2019 CLINICAL HISTORY: Left hip pain and osteoarthritis. TECHNIQUE: Fluoroscopy. Limited intraoperative views left hip. COMPARISON: None. FINDINGS: Fluoroscopic guidance was provided during hip replacement procedure performed by Dr. Timoteo car. A total of 22 seconds of fluoroscopic time was utilized during the procedure and 2 fluoroscopi c intraoperative images are acquired. Intraoperative images obtained show metallic hardware from total hip arthroplasty satisfactory in pos ition on frontal projection. IMPRESSION: As Above.
[2019-03-26] MEDS: LACTATED RINGERS 1,000 ML IV SCH ×3 (14:16→14:19)
[2019-03-26] MEDS: HYDROcodone/APAP 7.5-325MG 1 EACH TAB PO PRN ×2 (15:08→21:22)
[2019-03-26] MEDS: ceFAZolin IN SWFI 2 GM/20 ML SYRINGE IVP SCH (17:48)
[2019-03-26] MEDS: SENNOSIDES-DOCUSATE SODIUM 1 EACH TAB PO SCH (21:22)
[2019-03-27] MEDS: LACTATED RINGERS 1,000 ML IV SCH ×2 (03:15→06:04)
[2019-03-27] MEDS: ceFAZolin IN SWFI 2 GM/20 ML SYRINGE IVP SCH (03:15)
[2019-03-27] MEDS: HYDROcodone/APAP 7.5-325MG 1 EACH TAB PO PRN ×4 (03:16→21:02)
[2019-03-27] MEDS: MELOXICAM 7.5 MG TAB PO SCH (07:17)
[2019-03-27 08:01] LABS: Basophils % (A) 0 %; Eosinophils # (A) 0.1 k/uL (0-0.7); Eosinophils % (A) 1 %; HCT 37.8 % (39.0-53.0); HGB 11.7 gm/dL (13.0-17.5); Hypochromasia Slight; Lymphocytes # (A) 1.4 k/uL (1.0-4.8); Lymphocytes % (A) 9 %; MCHC 30.8 g/dL (31.0-37.0); MCV 94.2 fL (80.0-100.0); Mean Platelet Volume 7.5; Monocytes # (A) 1.2 k/uL (0-1.0); Monocytes % (A) 8 %; Neutrophils # (A) 12.4 k/uL (1.3-7.7); Neutrophils % (A) 81 %; Platelet Count 206 k/uL (150-450); RBC 4.02 m/uL (4.30-5.90); RDW 13.6 % (11.5-15.5); WBC 15.3 k/uL (3.8-10.6)
[2019-03-27] MEDS ORDERED: IPRATROPIUM-ALBUTEROL 3 ML NEB INHALATION PRN (08:50)
[2019-03-27] MEDS ORDERED: ENOXAPARIN 40 MG/0.4 ML SYRINGE SQ SCH (09:00)
[2019-03-27] MEDS: FUROSEMIDE 20 MG TAB PO SCH (09:21)
[2019-03-27] MEDS: MAGNESIUM OXIDE 400 MG TAB PO SCH (09:21)
[2019-03-27] MEDS: METOPROLOL SUCCINATE (ER) 50 MG TAB.ER.24H PO SCH (09:21)
[2019-03-27] MEDS: TAMSULOSIN 0.4 MG CAP.ER.24H PO SCH (09:22)
[2019-03-27] MEDS: FORMOTEROL FUMARATE 20 MCG/2 ML NEBU INHALATION SCH ×2 (09:31→20:08)
[2019-03-27] MEDS: ALPRAZolam 0.25 MG TAB PO PRN (10:31)
[2019-03-27] MEDS: IPRATROPIUM-ALBUTEROL 3 ML NEB INHALATION SCH ×3 (12:20→20:08)
--- NOTE | 2019-03-27 13:39 | P.PN ---
Subjective Progress Note Date: 03/27/19 Principal diagnosis: Status post direct anterior left total hip arthroplasty Patient evaluated at bedside today, his resting in his chair. He is ambulating with therapy. Does have minimal discomfort with regards to the left hip. Denies any chest pain or shortness of breath. Objective - Vital Signs Vital signs: Vital Signs Temp 98.5 F 03/27/19 07:34 Pulse 90 03/27/19 12:28 Resp 18 03/27/19 07:34 BP 111/70 03/27/19 07:34 Pulse Ox 95 03/27/19 07:34 Intake & Output 03/26/19 03/27/19 03/27/19 18:59 06:59 18:59 Intake Total 3121 960 Output Total 1400 300 Balance 1721 960 -300 Intake: IV 3001 Intake, IV Titration 960 Amount Lactated Ringers 1,000 ml 960 @ 80 mls/hr IV .[id number] [facility] Rx#:[id number] Oral 120 Output: Urine 600 300 Estimated Blood Loss 800 Other: Voiding Method Toilet Urinal Urinal # Voids 1 1 - Exam Left lower extremity: Incision is clean, dry, and intact. The exofin fusion tape is in good condition. There is minimal soft tissue swelling and ecchymosis surrounding the medial and lateral aspects of the incision. Calf is soft, no tenderness with palpation. Plantar flexion, dorsiflexion, EHL, FHL are intact. Sensory exam to light touch throughout the extremity is intact, dorsal pedis pulses 2+. - Labs CBC & Chem 7: 03/27/19 07:40 Labs: Abnormal Lab Results - Last 24 Hours (Table) 03/27/19 Range/Units 07:40 WBC 15.3 H (3.8-10.6) k/uL RBC 4.02 L (4.30-5.90) m/uL Hgb 11.7 L (13.0-17.5) gm/dL Hct 37.8 L (39.0-53.0) % MCHC 30.8 L (31.0-37.0) g/dL Neutrophils # 12.4 H (1.3-7.7) k/uL Monocytes # 1.2 H (0-1.0) k/uL Assessment and Plan Plan: Assessment: Postoperative day #1 status post direct anterior total hip arthroplasty Plan: Pain control, continue current medication GI and DVT prophylaxis, we'll restart Xarelto 20 mg tomorrow Home care instructions discussed Continue with physical therapy Medical recommendations Patient did state to subacute rehab after his first surgery 2 years ago, plan for the same Time with Patient: Less than 30
--- NOTE | 2019-03-27 14:09 | P.CONS ---
History of Present Illness - Reason for Consult Consult date: 03/27/19 Medical management of CHF, atrial fibrillation, hypertension, sleep apnea,a Requesting physician: Avery Donald - Chief Complaint symptomatic left hip osteoarthritis, status post OR - History of Present Illness This is a 63-year-old gentleman with symptomatic left hip osteoarthritis, failed outpatient treatment, status post total left hip arthroplasty in a patient with history of atrial fibrillation, CHF, hard of hearing, hypertension, sleep apnea, history of trach and removal, hypothyroidism, chronic back pain, anxiety and multiple other medical issues. Patient also has chronic respiratory failure, uses 2 L nasal cannula at night. Tolerated procedure well. Reports significant pain last night, better controlled this morning using ice packs in addition to [place]. Passing flatus, no bowel movement. Ambulating with PT. Maintaining O2 sats of 98% on room air. Denies chest pain, palpitations or shortness of breath. Denies lightheadedness dizziness or focal deficits. Past Medical History Past Medical History: Atrial Fibrillation, Heart Failure, Hearing Disorder / Deafness, Hypertension, Respiratory Disorder, Sleep Apnea/CPAP/BIPAP Additional Past Medical History / Comment(s): HX OF TRACH 2008 (SEVER CHF),STATES REMOVED AND IN 2011 HE HAD CARBON MONOXIDE POISONING AND TRACH REINSERTED. TRACH NOW REMOVED BUT STATES HOLE IS STILL OPEN, APPLIES BANDAID OVER IT DURING THE DAY. NASAL O2 AT 2 LITERS AT NIGHT. NO USE OF CPAP WHILE TRACH SITE IS OPEN. PAST HX OF LOW THYROID, NO MEDS NOW. BACK PAIN. STATES HIATAL HERNIA. History of Any Multi-Drug Resistant Organisms: None Reported Past Surgical History: Back Surgery, Orthopedic Surgery Additional Past Surgical History / Comment(s): 05/09/17 RIGHT TOTAL HIP. 07/02/16 laparoscopic [place] fundoplication/lap junior. Other surgical hx: hand surg., skin graft right leg, multiple insertion/removal tracheostomy tube Past Anesthesia/Blood Transfusion Reactions: No Reported Reaction Past Psychological History: Anxiety Additional Psychological History / Comment(s): Pt resides alone. He is independent. He uses home O2 at 2L at night. Smoking Status: Never smoker Past Alcohol Use History: None Reported Past Drug Use History: Marijuana Additional Drug Use History / Comment(s): NO MARIJUANA IN 10 YEARS - Past Family History Sister(s) Family Medical History: Cancer Additional Family Medical History / Comment(s): UTERINE CANCER Mother Family Medical History: Coronary Artery Disease (CAD) Additional Family Medical History / Comment(s): Mother at the age of 72 yrs. Medications and Allergies Home Medications Medication Instructions Recorded Confirmed Type Furosemide [Lasix] 20 mg PO QAM 07/10/14 03/26/19 History Lisinopril [Zestril] 2.5 mg PO QAM 07/10/14 03/26/19 History Atorvastatin [Lipitor] 20 mg PO DAILY@1200 05/14/16 03/26/19 History Rivaroxaban [Xarelto] 20 mg PO DAILY@1900 05/14/16 03/26/19 History Spironolactone [Aldactone] 25 mg PO DAILY@1400 05/14/16 03/26/19 History Magnesium 400 mg PO DAILY 04/29/17 03/26/19 History ALPRAZolam [Xanax] 0.25 mg PO BID PRN #40 tab 05/12/17 03/26/19 Rx Calcium Carbonate [Calcium] 600 mg PO QAM 03/23/19 03/26/19 History Hydrocodone/Acetaminophen [[place] 1 tab PO Q8H PRN 03/23/19 03/26/19 History 10-325] Tamsulosin [Flomax] 0.4 mg PO QAM 03/23/19 03/26/19 History Tiotropium Br/Olodaterol HCl 1 puff INHALATION RT-DAILY 03/23/19 03/26/19 History [Stiolto Respimat Inhal [place]] Metoprolol Succinate (ER) [Toprol 1 tab PO DAILY 03/27/19 03/27/19 History XL] Allergies Allergy/AdvReac Type Severity Reaction Status Date / Time Latex, Natural Rubber Allergy Rash/Hives Verified 03/26/19 13:47 Penicillins Allergy eye Verified 03/26/19 13:47 swelling piperacillin sodium Allergy Rash/Hives Verified 03/26/19 13:47 [From Zosyn] tazobactam sodium Allergy Rash/Hives Verified 03/26/19 13:47 [From Zosyn] prednisone AdvReac muscle Verified 03/26/19 13:47 spasms Physical Exam Vitals: Vital Signs Temp Pulse Pulse Pulse Resp BP BP 03/27/19 07:34 98.5 F 72 18 111/70 03/27/19 01:20 97.5 F L 79 18 100/62 03/26/19 21:18 98.1 F 91 14 112/69 03/26/19 16:00 81 91/64 03/26/19 15:45 81 110/72 03/26/19 15:30 82 113/58 03/26/19 15:15 87 131/71 03/26/19 15:00 92 105/64 03/26/19 14:45 77 102/56 03/26/19 14:22 74 91/60 03/26/19 14:10 03/26/19 14:06 97.7 F 78 20 100/65 03/26/19 13:50 75 18 100/50 03/26/19 13:30 73 18 87/52 03/26/19 13:15 75 75 18 85/47 03/26/19 13:00 72 18 87/50 03/26/19 12:46 97.6 F 74 18 113/73 03/26/19 09:13 97.8 F 68 18 132/65 Pulse Ox 03/27/19 07:34 95 03/27/19 01:20 95 03/26/19 21:18 96 03/26/19 16:00 03/26/19 15:45 03/26/19 15:30 03/26/19 15:15 03/26/19 15:00 03/26/19 14:45 03/26/19 14:22 94 L 03/26/19 14:10 96 03/26/19 14:06 89 L 03/26/19 13:50 98 03/26/19 13:30 97 03/26/19 13:15 98 03/26/19 13:00 92 L 03/26/19 12:46 94 L 03/26/19 09:13 96 Intake and Output 03/26/19 03/27/19 03/27/19 22:59 06:59 14:59 Intake Total 280 800 Output Total 600 300 Balance -320 800 -300 Intake: Intake, IV Titration 160 800 Amount Lactated Ringers 1,000 ml 160 800 @ 80 mls/hr IV .[id number] [facility] Rx#:[id number] Oral 120 Output: Urine 600 300 Other: Voiding Method Toilet Urinal Urinal # Voids 1 1 PHYSICAL EXAM: VITAL SIGNS: As above GENERAL: Sitting up in bed, no acute distress HEENT: Conjunctivae normal. eyes normal. Oral mucosa moist. History of trach,site remains open. NECK: No JVD. No thyroid enlargement. No LNs CARDIOVASCULAR: S1, S2 regular.. No murmur RESPIRATION: Breath sounds diminished in the bases. No rhonchi or crackles. No bronchial breathing. ABDOMEN: Soft, nontender . No guarding. no masses palpable. No ascites, No hepatosplenomegaly.Bowel sounds heard. LEGS: Left hip arthroplasty, direct anterior, dressing clean dry and intact, mild edema and ecchymosis. Positive DP pulse. PSYCHIATRY: Alert and oriented X3, mood and affect normal. NERVOUS SYSTEM: Cranial N 2-12 grossly normal. Moves all 4 limbs. Diffuse weakness ,No focal deficits. Strength and sensation grossly intact. Skin: no lesions, no rash. Joints: No active swelling. No inflammation. Lymphatic system. No LN neck axilla or groin. Results CBC & Chem 7: 03/27/19 07:40 Labs: Abnormal Lab Results - Last 24 Hours (Table) 03/27/19 Range/Units 07:40 WBC 15.3 H (3.8-10.6) k/uL RBC 4.02 L (4.30-5.90) m/uL Hgb 11.7 L (13.0-17.5) gm/dL Hct 37.8 L (39.0-53.0) % MCHC 30.8 L (31.0-37.0) g/dL Neutrophils # 12.4 H (1.3-7.7) k/uL Monocytes # 1.2 H (0-1.0) k/uL Assessment and Plan Assessment: -Symptomatic left hip osteoarthritis, failed outpatient treatment,Status post direct anterior total hip arthroplasty -Hypertension -Sleep apnea -Hypothyroidism currently not on any medications -Chronic back pain -Anxiety -Chronic atrial fibrillation -CHF, echo currently unavailable, stable -Anxiety Plan: Continue on current medication regime ,monitoring and symptomatic treatment. Home meds have been reviewed and resumed. Holding antihypertensives currently with systolic blood pressures in the low 100s. Xarelto should be resumed as soon as possible once okayed by orthopedic surgery. Aggressive pulmonary toileting with incentive spirometer reinforced. Pain management as per orthopedic surgery. PT. Subacute rehab at discharge. Further recommendations to follow. The impression and plan of care has been dictated as directed. : I performed a history and examination of this patient, discussed the same with the dictator. I agree with the dictator's note ,documented as a scribe. Any additional findings or plans will be noted. Time taken: 35 minutes
[2019-03-27] MEDS: SPIRONOLACTONE 25 MG TAB PO SCH (15:15)
[2019-03-27] MEDS: SENNOSIDES-DOCUSATE SODIUM 1 EACH TAB PO SCH (21:01)
[2019-03-28] MEDS: HYDROcodone/APAP 7.5-325MG 1 EACH TAB PO PRN ×3 (02:57→15:51)
[2019-03-28] MEDS: LACTATED RINGERS 1,000 ML IV SCH ×3 (07:15→13:49)
[2019-03-28 07:59] VITALS: BP 103/68; RESP 18; TEMP 97.7
[2019-03-28] MEDS ORDERED: TIOTROPIUM BR INHALATION SCH (08:00)
[2019-03-28] MEDS ORDERED: OLODATEROL HCL INHALATION SCH (08:00)
[2019-03-28] MEDS: FORMOTEROL FUMARATE 20 MCG/2 ML NEBU INHALATION SCH (08:16)
[2019-03-28] MEDS: IPRATROPIUM-ALBUTEROL 3 ML NEB INHALATION SCH ×2 (08:17→12:43)
[2019-03-28 08:27] LABS: Basophils % (A) 0 %; Eosinophils # (A) 0.2 k/uL (0-0.7); Eosinophils % (A) 2 %; HCT 34.4 % (39.0-53.0); HGB 10.5 gm/dL (13.0-17.5); Lymphocytes # (A) 2.5 k/uL (1.0-4.8); Lymphocytes % (A) 26 %; MCH 29.4 pg (25.0-35.0); MCHC 30.5 g/dL (31.0-37.0); MCV 96.3 fL (80.0-100.0); Mean Platelet Volume 7.5; Monocytes # (A) 0.8 k/uL (0-1.0); Monocytes % (A) 9 %; Neutrophils # (A) 5.8 k/uL (1.3-7.7); Neutrophils % (A) 61 %; Platelet Count 200 k/uL (150-450); RBC 3.57 m/uL (4.30-5.90); WBC 9.5 k/uL (3.8-10.6)
[2019-03-28 08:35] LABS: Calcium 8.1 mg/dL (8.4-10.2); Potassium 4.9 mmol/L (3.5-5.1)
[2019-03-28] MEDS ORDERED: RIVAROXABAN 20 MG TAB PO SCH (09:00)
[2019-03-28] MEDS: FUROSEMIDE 20 MG TAB PO SCH (09:08)
[2019-03-28] MEDS: METOPROLOL SUCCINATE (ER) 50 MG TAB.ER.24H PO SCH (09:09)
[2019-03-28] MEDS: MELOXICAM 7.5 MG TAB PO SCH (09:09)
[2019-03-28] MEDS: TAMSULOSIN 0.4 MG CAP.ER.24H PO SCH (09:09)
[2019-03-28] MEDS: ALPRAZolam 0.25 MG TAB PO PRN ×2 (09:18→13:53)
--- NOTE | 2019-03-28 10:01 | XR ---
EXAMINATION TYPE: XR chest 1V portable DATE OF EXAM: 03/28/2019 Comparison: 05/09/2017 Clinical History: 63-year-old male leukocytosis,Hypoxia Findings: Low lung volumes and cardiovascular markings. Similar asymmetric elevation right hemidiaphragm. There is some patchy peripheral left basilar opacity. Upper lungs are clear. Heart borderline enlarged. Impression: 1. Borderline heart size and hypoventilatory changes. 2. Patchy peripheral left basilar atelectasis versus infiltrate.
--- NOTE | 2019-03-28 11:38 | P.PN ---
Subjective Progress Note Date: 03/28/19 Principal diagnosis: Status post direct anterior left total hip arthroplasty Patient evaluated at bedside today, his resting in his chair. He is ambulating with therapy. Denies any chest pain or shortness of breath. Objective - Vital Signs Vital signs: Vital Signs Temp 97.7 F 03/28/19 07:12 Pulse 88 03/28/19 08:37 Resp 18 03/28/19 07:12 BP 103/68 03/28/19 07:12 Pulse Ox 90 L 03/28/19 07:12 Intake & Output 03/27/19 03/28/19 03/28/19 18:59 06:59 18:59 Output Total 300 Balance -300 Output: Urine 300 Other: Voiding Method Urinal Urinal # Voids 1 1 - Exam Left lower extremity: Incision is clean, dry, and intact. The exofin fusion tape is in good condition. There is minimal soft tissue swelling and ecchymosis surrounding the medial and lateral aspects of the incision. Calf is soft, no tenderness with pa lpation. Plantar flexion, dorsiflexion, EHL, FHL are intact. Sensory exam to light touch throughout the extremity is intact, dorsal pedis pulses 2+. - Labs CBC & Chem 7: 03/28/19 07:35 03/28/19 07:35 Labs: Abnormal Lab Results - Last 24 Hours (Table) 03/28/19 03/28/19 Range/Units 07:35 07:35 RBC 3.57 L (4.30-5.90) m/uL Hgb 10.5 L (13.0-17.5) gm/dL Hct 34.4 L (39.0-53.0) % MCHC 30.5 L (31.0-37.0) g/dL BUN 25 H (9-20) mg/dL Calcium 8.1 L (8.4-10.2) mg/dL Assessment and Plan Plan: Assessment: Postoperative day #2 status post direct anterior total hip arthroplasty Plan: Pain control, continue current medication GI and DVT prophylaxis, continue current medication Home care instructions discussed Continue with physical therapy Medical recommendations Plan for discharge to rehab today Time with Patient: Less than 30
--- NOTE | 2019-03-28 11:42 | P.DS ---
Providers Date of admission: 03/26/19 08:46 Expected date of discharge: 03/28/19 Attending physician: Avery Donald Consults: 03/26/19 12:31 Consult Physician Routine Consulting Provider: Jan Foster Reason/Comments: Medical management Do you want consulting provider notified?: Yes Primary care physician: Jan Foster [facility] Course: Date of admission: 03/26/2019 Date of discharge: 03/28/2019 Admission diagnosis: Status post direct anterior left total hip arthroplasty Discharge diagnosis: Same Attending physician: Dr. Donald Surgical procedures: Direct anterior left total hip arthroplasty Brief history: Patient is a 63-year-old male with a history of progressive primary left hip osteoarthritis. At this point patient has failed conservative treatment measures and has opted to proceed with a elective direct anterior left total hip arthroplasty. Hospital course: Details of patient's surgery can be found in operative report. Patient tolerated the procedure well and was subsequently transported to orthopedic floor. Patient's orthopeidc and medical care was provided daily. Patient had daily laboratory tests performed for evaluation of overall blood counts. Patient had daily physical therapy to include strengthening range of motion as well as education with walker ambulation. Patient was treated with Lovenox for their postoperative DVT prophylaxis during their inpatient stay. Patient was noted to have a relatively uneventful postoperative course. Patient reported satisfactory pain control with oral pain medications by postoperative day 0. Patient showed satisfactory progress with physical therapy. Patient moved steadily through the program and had no difficulty meeting the goals by postoperative day 2. Given patient's otherwise satisfactory course and having met physical therapy goals, plan is to discharge patient rehab on postoperative day 2. Discharge condition/disposition: Patient will be discharged home in stable condition. Discharge medications: Instructions are given on resumption of patient's normal daily medications per primary care recommendation, in addition patient will be prescribed [place] 7.5 mg/325 mg. Discharge instructions: 1. Wound care and infection precautions, keep incision dry and covered while showering, no lotions, creams, moisturizers. No soaking, tubs, pools, hottubs. Do not scrub over the incision. 2. Weight-bear as tolerated with walker / cane until follow-up. 3. Ice and elevate when necessary. Do not exceed 20 minutes per hour with ice pack. 4. Utilize compression sleeve until seen at first follow up appointment. 5. Visiting nursing care. 6. Home physical therapy. 7. Pain meds and anticoagulants per prescription. 8. Pain medication has potential to cause constipation. Increase oral fluid and fiber intake. Contact primary care provider if you have not had a bowel movement within 48 hours after discharge 9. No anti-inflammatory medication until discussed at first post operative visit, this including Motrin, Aleve, Mobic, Diclofenac. 10. Follow up in office at 2 weeks postop with Donald Pérez PA-C 11. Follow up with your primary care doctor 7-10 days after discharge. 12. Contact [facility] with any questions, . Procedures: Direct anterior total left hip arthroplasty Patient Condition at Discharge: Good Plan - Discharge Summary Discharge Rx Participant: No New Discharge Prescriptions: New HYDROcodone/APAP 7.5-325MG [[place] 7.5] 1 - 2 each PO Q6HR PRN #56 tab PRN Reason: Pain No Action Lisinopril [Zestril] 2.5 mg PO QAM Furosemide [Lasix] 20 mg PO QAM Spironolactone [Aldactone] 25 mg PO DAILY@1400 Rivaroxaban [Xarelto] 20 mg PO DAILY@1900 Atorvastatin [Lipitor] 20 mg PO DAILY@1200 Magnesium 400 mg PO DAILY ALPRAZolam [Xanax] 0.25 mg PO BID PRN #40 tab PRN Reason: Anxiety Tiotropium Br/Olodaterol HCl [Stiolto Respimat Inhal [place]] 1 puff INHALATION RT-DAILY Tamsulosin [Flomax] 0.4 mg PO QAM Calcium Carbonate [Calcium] 600 mg PO QAM Metoprolol Succinate (ER) [Toprol XL] 1 tab PO DAILY Discharge Medication List Furosemide [Lasix] 20 mg PO QAM 07/10/14 [History] Lisinopril [Zestril] 2.5 mg PO QAM 07/10/14 [History] Atorvastatin [Lipitor] 20 mg PO DAILY@1200 05/14/16 [History] Rivaroxaban [Xarelto] 20 mg PO DAILY@1900 05/14/16 [History] Spironolactone [Aldactone] 25 mg PO DAILY@1400 05/14/16 [History] Magnesium 400 mg PO DAILY 04/29/17 [History] ALPRAZolam [Xanax] 0.25 mg PO BID PRN #40 tab 05/12/17 [Rx] Calcium Carbonate [Calcium] 600 mg PO QAM 03/23/19 [History] Tamsulosin [Flomax] 0.4 mg PO QAM 03/23/19 [History] Tiotropium Br/Olodaterol HCl [Stiolto Respimat Inhal [place]] 1 puff INHALATION RT-DAILY 03/23/19 [History] Metoprolol Succinate (ER) [Toprol XL] 1 tab PO DAILY 03/27/19 [History] HYDROcodone/APAP 7.5-325MG [[place] 7.5] 1 - 2 each PO Q6HR PRN #56 tab 03/28/19 [Rx] Follow up Appointment(s)/Referral(s): Jan Foster MD [Primary Care Provider] - 04/03/19 9:30 am Eriberto Pérez PAC [PHYSICIAN PROGRAM TECHNICIAN] - 04/11/19 10:40 am Activity/Diet/Wound Care/Special Instructions: Orthopedic Discharge Instructions: 1. Wound care and infection precautions, keep incision dry and covered while showering, no lotions, creams, moisturizers. No soaking, pools, hot tubs. Do not scrub over incision. 2. Weight-bear as tolerated with walker / cane until follow-up. 3. Ice and elevate when necessary. Do not exceed 20 minutes per hour with ice pack. 4. Utilize compression sleeve until seen at first follow up appointment. 5. Pain meds and anticoagulants per prescription. 6. Pain medication has potential to cause constipation. Increase oral fluid and fiber intake. Contact primary care provider if you have not had a bowel movement within 48 hours after discharge. 7. No anti-inflammatory medication until discussed at first post operative visit, this including Motrin, Aleve, Mobic, Diclofenac. 8. Follow up in office at 2 weeks postop with Donald Pérez PA-C 9. Follow up with your primary care doctor 7-10 days after discharge. 10. Contact [facility] with any questions, . Discharge Disposition: HOME WITH HOME HEALTH SERVICES
--- NOTE | 2019-03-28 12:24 | P.PN ---
Subjective Progress Note Date: 03/28/19 This is a 63-year-old gentleman with symptomatic left hip osteoarthritis, failed outpatient treatment, status post total left hip arthroplasty in a patient with history of atrial fibrillation, CHF, hard of hearing, hypertension, sleep apnea, history of trach and removal, hypothyroidism, chronic back pain, anxiety and multiple other medical issues. Patient also has chronic respiratory failure, uses 2 L nasal cannula at night. Tolerated procedure well. Reports significant pain last night, better controlled this morning using ice packs in addition to [place]. Passing flatus, no bowel movement. Ambulating with PT. Maintaining O2 sats of 98% on room air. Denies chest pain, palpitations or shortness of breath. Denies lightheadedness dizziness or focal deficits. 03/28/2019 significant clinical improvement. Pain controlled. Ambulating with physical therapy in hallway, tolerating exertion well. Positive flatus, positive bowel movement. Afebrile, normal WBC. Maintaining O2 sats in the mid 90s on room air. Incentive spirometer up to 2200. Denies shortness of breath, denies cough. ALEXA inhibitor remains on hold secondary to borderline hypotension with systolic blood pressures currently in the low 100s. Denies chest pain, palpitations. Denies lightheadedness dizziness or focal deficits. Patient is being discharged to [facility] today. Objective - Vital Signs Vital signs: Vital Signs Temp 97.7 F 03/28/19 07:12 Pulse 88 03/28/19 08:17 Resp 18 03/28/19 07:12 BP 103/68 03/28/19 07:12 Pulse Ox 90 L 03/28/19 07:12 Intake & Output 03/27/19 03/28/19 03/28/19 18:59 06:59 18:59 Output Total 300 Balance -300 Output: Urine 300 Other: Voiding Method Urinal Urinal # Voids 1 - Exam VITAL SIGNS: As above GENERAL: Sitting up in chair, no acute distress HEENT: Conjunctivae normal. eyes normal. Oral mucosa moist. History of trach,site remains open. NECK: No JVD. No thyroid enlargement. No LNs CARDIOVASCULAR: S1, S2 regular.. No murmur RESPIRATION: Breath sounds diminished in the bases. No rhonchi or crackles. No bronchial breathing. ABDOMEN: Soft, nontender . No guarding. no masses palpable. Bowel sounds heard. LEGS: Left hip arthroplasty, direct anterior, dressing clean dry and intact, mild edema and ecchymosis. Positive DP pulse. PSYCHIATRY: Alert and oriented X3, mood and affect normal. NERVOUS SYSTEM: Cranial N 2-12 grossly normal. Moves all 4 limbs. Diffuse w eakness ,No focal deficits. Strength and sensation grossly intact. Skin: no lesions, no rash. - Labs CBC & Chem 7: 03/28/19 07:35 03/28/19 07:35 Assessment and Plan Assessment: -Symptomatic left hip osteoarthritis, failed outpatient treatment,Status post direct anterior total hip arthroplasty -Hypertension -Sleep apnea -Hypothyroidism currently not on any medications -Chronic back pain -Anxiety -Chronic atrial fibrillation -CHF, echo currently unavailable, stable -Anxiety -Atelectasis -Leukocytosis, suspect reactive, resolved. Plan: Continue on current medication regime ,monitoring and symptomatic tr eatment. Continue holding ALEXA inhibitor with systolic blood pressures in the low 100s. Xarelto resumed. Pain management as per orthopedic surgery. Continue aggressive pulmonary toileting with incentive spirometer reinforced; every hour 102 weeks outpatient. Final UA results to PCP. As mentioned above patient is being discharged to subacute rehab today in a stable condition with guarded prognosis. The impression and plan of care has been dictated as directed. : I performed a history and examination of this patient, discussed the same with the dictator. I agree with the dictator's note ,documented as a scribe. Any additional findings or plans will be noted. Time taken: 35 minutes
[2019-03-28 12:57] VITALS: PULSE 88
[2019-03-28] MEDS: SPIRONOLACTONE 25 MG TAB PO SCH (13:47)
[2019-03-28] MEDS: MAGNESIUM OXIDE 400 MG TAB PO SCH (13:47)
== END 2019-03-28 16:00 | DRG 470 ==
LOC: 2ORMAIN 08:46 → 4SSUR 13:24
PROVIDERS: ADMIT Orthopaedic Surgery; ATTEND Orthopaedic Surgery
PROC: 0SRD0JA Replacement of Left Knee Joint with Synthetic Substitute, Uncemented, Open Approach (ICD-10-PCS; principal; 2019-03-26 10:15)
DX: M16.12 Unilateral primary osteoarthritis, left hip (principal); J96.10 Chronic respiratory failure, unspecified whether with hypoxia or hypercapnia; J98.11 Atelectasis; I50.9 Heart failure, unspecified; I11.0 Hypertensive heart disease with heart failure; I95.9 Hypotension, unspecified; I48.2 Chronic atrial fibrillation; J44.9 Chronic obstructive pulmonary disease, unspecified; D72.829 Elevated white blood cell count, unspecified; F41.9 Anxiety disorder, unspecified; E78.00 Pure hypercholesterolemia, unspecified; E78.5 Hyperlipidemia, unspecified; I25.10 Atherosclerotic heart disease of native coronary artery without angina pectoris; K44.9 Diaphragmatic hernia without obstruction or gangrene; G47.30 Sleep apnea, unspecified; E03.9 Hypothyroidism, unspecified; G89.29 Other chronic pain; M54.9 Dorsalgia, unspecified; H91.90 Unspecified hearing loss, unspecified ear; Z99.81 Dependence on supplemental oxygen; Z79.01 Long term (current) use of anticoagulants; Z79.899 Other long term (current) drug therapy; Z90.49 Acquired absence of other specified parts of digestive tract; Z86.718 Personal history of other venous thrombosis and embolism; Z86.711 Personal history of pulmonary embolism; Z96.641 Presence of right artificial hip joint; Z88.0 Allergy status to penicillin; Z88.1 Allergy status to other antibiotic agents; Z91.040 Latex allergy status; Z82.49 Family history of ischemic heart disease and other diseases of the circulatory system; Z80.49 Family history of malignant neoplasm of other genital organs
CPT/HCPCS: 71045; 73501; 80048; 85025; 85610; 88300; 94640

== ENCOUNTER → 2019-08-08 | Outpatient (CLI) | payer MEDICARE ==
--- NOTE | 2019-08-08 16:33 | CT ---
EXAMINATION TYPE: CT abdomen wo con DATE OF EXAM: 08/08/2019 COMPARISON: 04/06/2016 INDICATION: Upper abdominal pain with spasm like pain for 4-5 days DLP: 1062.5 mGycm, Automated exposure control for dose reduction was used. CONTRAST: 0 mL of Isovue 300. Study performed without Oral Contrast TECHNIQUE: Axial images were obtained from above the diaphragm to the iliac crests in the axial plane at 5 mm thick sections. Reconstructed images are reviewed on the computer in the coronal plane. FINDINGS: Limited CT sections are obtained the lung bases. The lung bases are clear. Coronary artery calcific ations present. Some minimal atelectasis may be in the infrahilar region on the right. CT ABDOMEN: Stomach is distended with debris Liver: Normal Spleen: Normal Pancreas: Atrophy and fatty infiltration is present. Adrenal glands: The adrenal glands are normal. Gallbladder: Surgically absent. Kidneys: No masses are evident. No hydronephrosis is present. No cysts are present. No renal stone s are evident. Aorta: Vascular calcification is within the aorta. Inferior vena cava: Normal. Loops of bowel within the abdomen are normal. Study is with oral contrast limiting bowel evaluati on. Appendix: Not identified IMPRESSIONS: 1. No suspicious acute changes upper abdomen
== END ==
LOC: RADCTMAIN 13:11
PROVIDERS: ATTEND Family Medicine
DX: R10.84 Generalized abdominal pain (principal)
CPT/HCPCS: 74150

== ENCOUNTER 2020-04-15 07:05 | Inpatient (IN) | payer MEDICARE ==
[2020-04-15] MEDS ORDERED: LIDOCAINE 5% PATCH TOPICAL STA (07:24)
[2020-04-15] MEDS ORDERED: MORPHINE SULFATE 4 MG/ML SYRINGE IM STA (07:24)
--- NOTE | 2020-04-15 07:27 | ED ---
General Adult HPI - General Chief complaint: Back Pain/Injury Stated complaint: Back pain Time Seen by Provider: 04/15/20 07:10 Source: patient, EMS Mode of arrival: EMS - History of Present Illness Initial comments: Dictation was produced using [employer] dictation software. please excuse any grammatical, word or spelling errors. This patient was cared for during a federal and state declared state of emergency secondary to Covid 19 Chief Complaint: 64-year-old male with multiple comorbidities presents with left upper back pain after fall History of Present Illness: 64-year-old male with multiple comorbidities. He presents today with left scapular pain after fall. Patient states that 2 days ago he was tried to stand up. He was supporting his weight was walker when his walker slipped out from under him. Patient fell backwards landing onto his left upper back. Patient denies any head trauma. States that this morning he woke up with worsening left upper back pain. Denies any head trauma. No loss of consciousness. He has no neck pain. Patient was initially able to ambulate at baseline after the incident. States that his pain is around his left scapular region. It's worse with palpation. It's also noticeable when he takes deep breath. Denies any nausea or vomiting. No shortness of breath. No abdominal pain. The ROS documented in this emergency department record has been reviewed and confirmed by me. Those systems with pertinent positive or negative responses have been documented in the HPI. All other systems are other negative and/or noncontributory. PHYSICAL EXAM: General Impression: Alert and oriented x3, not in acute distress HEENT: Normocephalic atraumatic, extra-ocular movements intact, pupils equal and reactive to light bilaterally, mucous membranes moist, tracheostomy in place Cardiovascular: Heart regular rate and rhythm Chest: Able to complete full sentences, no retractions, no tachypnea Abdomen: abdomen soft, non-tender, non-distended, no organomegaly Musculoskeletal: Pulses present and equal in all extremities, no peripheral edema Back: No bruising to the back area, tenderness to palpation over the inferior scapula Motor: no focal deficits noted Neurological: CN II-XII grossly intact, no focal motor or sensory deficits noted Skin: Intact with no visualized rashes Psych: Normal affect and mood ED course: 64-year-old male presents with left upper back pain after fall. Signs upon arrival are within acceptable limits. Patient has multiple comorbidities. He does state Xarelto. Patient denies head trauma or neck pain. Fall occurred approximately 2 days ago. No neurologic deficits. Denies any headache. No clinical suspicion of intracranial injury.Computed tomography scan of the chest shows fractures of the left fifth through 10th ribs. 3 of those ribs have segmental fractures. There is a small left pleural effusion concerning for possible mild hemothorax. There is also a aneurysmal ascending aorta 4.1 cm. Patient reevaluated found to be in stable medical condition. Considering patient's age, comorbidities and injury there is concern that patient could have worsening respiratory decline. Patient will be admitted to trauma surgery. Medicine consulted. Case was discussed with Dr. Clayton and is willing to accept patients care. - Related Data Home Medications Medication Instructions Recorded Confirmed Furosemide [Lasix] 20 mg PO QAM 07/10/14 03/26/19 Atorvastatin [Lipitor] 20 mg PO DAILY@1200 05/14/16 03/26/19 Rivaroxaban [Xarelto] 20 mg PO DAILY@1900 05/14/16 03/26/19 Spironolactone [Aldactone] 25 mg PO DAILY@1400 05/14/16 03/26/19 Magnesium 400 mg PO DAILY 04/29/17 03/26/19 Calcium Carbonate [Calcium] 600 mg PO QAM 03/23/19 03/26/19 Tamsulosin [Flomax] 0.4 mg PO QAM 03/23/19 03/26/19 Tiotropium Br/Olodaterol HCl 1 puff INHALATION RT-DAILY 03/23/19 03/26/19 [Stiolto Respimat Inhal [place]] Metoprolol Succinate (ER) [Toprol 1 tab PO DAILY 03/27/19 03/27/19 XL] Previous Rx's Medication Instructions Recorded ALPRAZolam [Xanax] 0.25 mg PO BID PRN #6 tab 03/28/19 HYDROcodone/APAP 7.5-325MG [[place] 1 - 2 each PO Q6HR PRN #56 tab 03/28/19 7.5] Ipratropium-Albuterol Nebulize 3 ml INHALATION Q4H PRN ampul.neb 03/28/19 [Duoneb 0.5 mg-3 mg/3 ml Soln] Ipratropium-Albuterol Nebulize 3 ml INHALATION RT-QID ampul.neb 03/28/19 [Duoneb 0.5 mg-3 mg/3 ml Soln] Sennosides-Docusate Sodium 2 each PO HS tab 03/28/19 [Senokot-S] Allergies Allergy/AdvReac Type Severity Reaction Status Date / Time Latex, Natural Rubber Allergy Rash/Hives Verified 04/15/20 07:13 Penicillins Allergy eye Verified 04/15/20 07:13 swelling piperacillin sodium Allergy Rash/Hives Verified 04/15/20 07:13 [From Zosyn] tazobactam sodium Allergy Rash/Hives Verified 04/15/20 07:13 [From Zosyn] prednisone AdvReac muscle Verified 04/15/20 07:13 spasms Review of Systems ROS Statement: Those systems with pertinent positive or pertinent negative responses have been documented in the HPI. ROS Other: All systems not noted in ROS Statement are negative. Past Medical History Past Medical History: Atrial Fibrillation, Heart Failure, Hearing Disorder / Deafness, Hypertension, Respiratory Disorder, Sleep Apnea/CPAP/BIPAP Additional Past Medical History / Comment(s): HX OF TRACH 2008 (SEVER CHF),STATES REMOVED AND IN 2011 HE HAD CARBON MONOXIDE POISONING AND TRACH REINSERTED. TRACH NOW REMOVED BUT STATES HOLE IS STILL OPEN, APPLIES BANDAID OVER IT DURING THE DAY. NASAL O2 AT 2 LITERS AT NIGHT. NO USE OF CPAP WHILE TRACH SITE IS OPEN. PAST HX OF LOW THYROID, NO MEDS NOW. BACK PAIN. STATES HIATAL HERNIA. History of Any Multi-Drug Resistant Organisms: None Reported Past Surgical History: Back Surgery, Orthopedic Surgery Additional Past Surgical History / Comment(s): 05/09/17 RIGHT TOTAL HIP. 07/02/16 laparoscopic [place] fundoplication/lap junior. Other surgical hx: hand surg., skin graft right leg, multiple insertion/removal tracheostomy tube Past Anesthesia/Blood Transfusion Reactions: No Reported Reaction Past Psychological History: Anxiety Smoking Status: Never smoker Past Alcohol Use History: None Reported Past Drug Use History: Marijuana - Past Family History Sister(s) Family Medical History: Cancer Additional Family Medical History / Comment(s): UTERINE CANCER Mother Family Medical History: Coronary Artery Disease (CAD) Additional Family Medical History / Comment(s): Mother at the age of 72 yrs. Course Vital Signs 04/15/20 07:06 Temperature 99.2 F Pulse Rate 94 Respiratory 18 Rate Blood Pressure 113/73 O2 Sat by Pulse 93 L Oximetry Disposition Clinical Impression: Ribs, multiple fractures Disposition: ADMITTED IP TO THIS HOSP Condition: Fair Referrals: Jan Foster MD [Primary Care Provider] - 1-2 days Decision Time: 08:39
--- NOTE | 2020-04-15 08:29 | CT ---
EXAMINATION TYPE: CT chest wo con DATE OF EXAM: 04/15/2020 COMPARISON: None HISTORY: 64-year-old male with left scapular pain after fall TECHNIQUE: Contiguous axial scanning of the chest without IV contrast. Coronal and sagittal reconstru ctions performed. 3-D reconstructions of the shoulder girdles generated on a dedicated workstation. CT DLP: 1099.6 mGycm Automated exposure control for dose reduction was used. FINDINGS: There appears to be a tracheostomy stoma. Significant flattening of the upper trachea, refer to axial image 23 reflect tracheomalacia. Heart is borderline enlarged without pericardial effusion. Three-vessel coronary artery calcification s are present. Ascending aorta mildly aneurysmal at 4.1 cm. Conventional arch vessel branching anatomy. Scattered nonenlarged mediastinal lymph nodes. No thoracic lymphadenopathy by CT size criteria. Generalized hazy densities are present. Prominent areas of atelectasis in the lower lungs. Small left pleural effusion with prominent adjacent dependent atelectasis. No evidence scapular clavicle fracture. Multiple left-sided rib fractures are present including the fifth through 10th ribs. The fifth, sixth , and seventh rib fractures are segmental fractures with breaks in 2 places. No pneumothorax. Visualized upper abdomen shows no gross abnormality. There is a moderate-sized hiatal hernia. Bones: Facet arthropathy throughout the thoracic spine. Left-sided rib fractures as mentioned above. Suspect some old healed right-sided rib fracture deformities. IMPRESSION: 1. FRACTURES OF THE LEFT FIFTH THROUGH 10TH RIBS. THE FIFTH, SIXTH, AND SEVENTH RIB FRACTURES ARE SEG MENTAL FRACTURES. THIS DOES NOT QUITE MEET INSTITUTIONAL CRITERIA (4 CONSECUTIVE LEVELS) FOR FLAIL CH EST. CLINICALLY CORRELATE. 2. SMALL LEFT PLEURAL EFFUSION. PROMINENT DEPENDENT ATELECTASIS AT BOTH LUNG BASES LIKELY FROM HYPOVE NTILATION. GENERALIZED HAZY DENSITIES ARE ALSO PRESENT AND ALSO LIKELY REPRESENT AREAS OF ATELECTASIS . CLINICAL MONITORING RECOMMENDED IF CONCERN FOR EARLY ASPIRATION. 3. TRACHEOSTOMY STOMA. INCIDENTAL FLATTENING OF THE UPPER TRACHEA SUGGESTING TRACHEOMALACIA. 4. MODERATE-SIZED HIATAL HERNIA. CAD. ANEURYSMAL ASCENDING AORTA AT 4.1 CM.
[2020-04-15] MEDS ORDERED: ONDANSETRON 4 MG/2 ML VIAL IVP PRN (08:35)
[2020-04-15] MEDS ORDERED: ACETAMINOPHEN TAB 325 MG TAB PO PRN (08:35)
[2020-04-15] MEDS ORDERED: NALOXONE 0.4 MG/ML 1 ML VIAL IV PRN (08:35)
[2020-04-15 09:49] LABS: Basophils % (A) 0 %; Eosinophils # (A) 0.2 k/uL (0-0.7); Eosinophils % (A) 2 %; HCT 43.5 % (39.0-53.0); HGB 14.5 gm/dL (13.0-17.5); Lymphocytes # (A) 1.6 k/uL (1.0-4.8); Lymphocytes % (A) 12 %; MCH 31.3 pg (25.0-35.0); MCHC 33.3 g/dL (31.0-37.0); Mean Platelet Volume 7.5; Monocytes # (A) 0.8 k/uL (0-1.0); Monocytes % (A) 7 %; Neutrophils % (A) 79 %; Platelet Count 217 k/uL (150-450); RBC 4.63 m/uL (4.30-5.90); RDW 12.9 % (11.5-15.5); WBC 12.7 k/uL (3.8-10.6)
[2020-04-15 10:02] LABS: INR 1.2 (<1.2); Partial Thromboplastin Time 30.8 sec (22.0-30.0)
[2020-04-15 10:12] LABS: ALT 20 U/L (4-49); AST 24 U/L (17-59); African American GFR (CKD) >90 (>60 ml/min/1.73 sqM); Albumin 3.8 g/dL (3.5-5.0); Alkaline Phosphatase 61 U/L (38-126); Anion Gap 10 mmol/L; Blood Urea Nitrogen 18 mg/dL (9-20); Calcium 8.8 mg/dL (8.4-10.2); Carbon Dioxide 29 mmol/L (22-30); Chloride 98 mmol/L (98-107); Glucose 130 mg/dL (74-99); Non-African American GFR(CKD) 80 (>60 ml/min/1.73 sqM); Potassium 4.7 mmol/L (3.5-5.1); Sodium 137 mmol/L (137-145); Total Bilirubin 0.6 mg/dL (0.2-1.3)
[2020-04-15] MEDS: HYDROcodone/APAP 5-325MG 1 EACH TAB PO PRN ×2 (11:33→15:20)
[2020-04-15] MEDS: SODIUM CHLORIDE 0.9% 1,000 ML IV SCH (11:34)
--- NOTE | 2020-04-15 11:59 | P.GSHP ---
History of Present Illness H&P Date: 04/15/20 Chief Complaint: Left chest wall pain This a 8-year-old male who fell while using his walker on his deck several days ago. Patient admitted to hospital found have several left rib fractures. Past Medical History Past Medical History: Atrial Fibrillation, Heart Failure, Hearing Disorder / Deafness, Hypertension, Respiratory Disorder, Sleep Apnea/CPAP/BIPAP Additional Past Medical History / Comment(s): HX OF TRACH 2008 (SEVER CHF),STATES REMOVED AND IN 2011 HE HAD CARBON MONOXIDE POISONING AND TRACH REINSERTED. TRACH NOW REMOVED BUT STATES HOLE IS STILL OPEN, APPLIES BANDAID OVER IT DURING THE DAY. NASAL O2 AT 2 LITERS AT NIGHT. NO USE OF CPAP WHILE TRACH SITE IS OPEN. PAST HX OF LOW THYROID, NO MEDS NOW. BACK PAIN. STATES HIATAL HERNIA. History of Any Multi-Drug Resistant Organisms: None Reported Past Surgical History: Back Surgery, Cholecystectomy, Orthopedic Surgery Additional Past Surgical History / Comment(s): 05/09/17 RIGHT TOTAL HIP. 07/02/16 laparoscopic chantale fundoplication/lap junior. Other surgical hx: hand surg., skin graft right leg, multiple insertion/removal tracheostomy tube. pt stated gull bladder removal in 2016 Past Anesthesia/Blood Transfusion Reactions: No Reported Reaction Past Psychological History: Anxiety Additional Psychological History / Comment(s): Pt resides alone. He is independent. He uses home O2 at 2L at night. Smoking Status: Never smoker Past Alcohol Use History: None Reported Past Drug Use History: Marijuana Additional Drug Use History / Comment(s): NO MARIJUANA IN 10 YEARS - Past Family History Sister(s) Family Medical History: Cancer Additional Family Medical History / Comment(s): UTERINE CANCER Mother Family Medical History: Coronary Artery Disease (CAD) Additional Family Medical History / Comment(s): Mother at the age of 72 yrs. Medications and Allergies Home Medications Medication Instructions Recorded Confirmed Type Furosemide [Lasix] 20 mg PO QA 07/10/14 04/15/20 History Atorvastatin [Lipitor] 20 mg PO DAILY@1400 05/14/16 04/15/20 History Rivaroxaban [Xarelto] 20 mg PO HS 05/14/16 04/15/20 History Spironolactone [Aldactone] 25 mg PO DAILY@1400 05/14/16 04/15/20 History Tamsulosin [Flomax] 0.4 mg PO DAILY 03/23/19 04/15/20 History Metoprolol Succinate (ER) [Toprol 50 mg PO DAILY 03/27/19 04/15/20 History XL] ALPRAZolam [Xanax] 0.25 mg PO BID 04/15/20 04/15/20 History Calcium Carbonate/Vitamin D3 1 tab PO DAILY 04/15/20 04/15/20 History [Calcium 600-Vit D3 400 Tablet] Cyclobenzaprine [Flexeril] 5 mg PO DAILY PRN 04/15/20 04/15/20 History HYDROcodone/APAP 10-325MG [[place] 1 tab PO TID PRN 04/15/20 04/15/20 History 10-325] Lisinopril [Zestril] 2.5 mg PO DAILY@1400 04/15/20 04/15/20 History Magnesium Gluconate [Magonate] 500 mg PO HS 04/15/20 04/15/20 History Allergies Allergy/AdvReac Type Severity Reaction Status Date / Time Latex, Natural Rubber Allergy Rash/Hives Verified 04/15/20 08:47 Penicillins Allergy eye Verified 04/15/20 08:47 swelling piperacillin sodium Allergy Rash/Hives Verified 04/15/20 08:47 [From Zosyn] tazobactam sodium Allergy Rash/Hives Verified 04/15/20 08:47 [From Zosyn] prednisone AdvReac muscle Verified 04/15/20 08:47 spasms Surgical - Exam Vital Signs Temp Pulse Resp BP Pulse Ox 99.2 F 94 18 113/73 93 L 04/15/20 07:06 04/15/20 07:06 04/15/20 07:06 04/15/20 07:06 04/15/20 07:06 - General well developed, well nourished, no distress - Eyes PERRL - ENT normal pinna - Neck no masses - Respiratory Left chest wall pain normal expansion - Cardiovascular Rhythm: regular - Abdomen Abdomen: soft, non tender Results - Labs 04/15/20 09:32 04/15/20 09:32 Abnormal Lab Results - Last 24 Hours (Table) 04/15/20 04/15/20 04/15/20 Range/Units 09:32 09:32 09:32 WBC 12.7 H (3.8-10.6) k/uL Neutrophils # 10.0 H (1.3-7.7) k/uL INR 1.2 H (<1.2) APTT 30.8 H (22.0-30.0) sec Glucose 130 H (74-99) mg/dL Diabetes panel 04/15/20 Range/Units 09:32 Sodium 137 (137-145) mmol/L Potassium 4.7 (3.5-5.1) mmol/L Chloride 98 (98-107) mmol/L Carbon Dioxide 29 (22-30) mmol/L BUN 18 (9-20) mg/dL Creatinine 1.00 (0.66-1.25) mg/dL Glucose 130 H (74-99) mg/dL Calcium 8.8 (8.4-10.2) mg/dL AST 24 (17-59) U/L ALT 20 (4-49) U/L Alkaline Phosphatase 61 (38-126) U/L Total Protein 7.0 (6.3-8.2) g/dL Albumin 3.8 (3.5-5.0) g/dL Calcium panel 04/15/20 Range/Units 09:32 Calcium 8.8 (8.4-10.2) mg/dL Albumin 3.8 (3.5-5.0) g/dL Pituitary panel 04/15/20 Range/Units 09:32 Sodium 137 (137-145) mmol/L Potassium 4.7 (3.5-5.1) mmol/L Chloride 98 (98-107) mmol/L Carbon Dioxide 29 (22-30) mmol/L BUN 18 (9-20) mg/dL Creatinine 1.00 (0.66-1.25) mg/dL Glucose 130 H (74-99) mg/dL Calcium 8.8 (8.4-10.2) mg/dL Adrenal panel 04/15/20 Range/Units 09:32 Sodium 137 (137-145) mmol/L Potassium 4.7 (3.5-5.1) mmol/L Chloride 98 (98-107) mmol/L Carbon Dioxide 29 (22-30) mmol/L BUN 18 (9-20) mg/dL Creatinine 1.00 (0.66-1.25) mg/dL Glucose 130 H (74-99) mg/dL Calcium 8.8 (8.4-10.2) mg/dL Total Bilirubin 0.6 (0.2-1.3) mg/dL AST 24 (17-59) U/L ALT 20 (4-49) U/L Alkaline Phosphatase 61 (38-126) U/L Total Protein 7.0 (6.3-8.2) g/dL Albumin 3.8 (3.5-5.0) g/dL Assessment and Plan Assessment: Multiple left rib fractures of fifth through 10th. Small left pleural effusion. Patient received supportive care and analgesia.
[2020-04-15] MEDS ORDERED: CYCLOBENZAPRINE 5 MG TAB PO PRN (17:17)
[2020-04-15] MEDS: ALPRAZolam 0.25 MG TAB PO SCH (20:01)
[2020-04-15] MEDS: HYDROcodone/APAP 10-325MG 1 EACH TAB PO PRN (20:02)
[2020-04-15] MEDS: MAGNESIUM OXIDE 400 MG TAB PO SCH (20:02)
[2020-04-15] MEDS: RIVAROXABAN 20 MG TAB PO SCH (20:02)
--- NOTE | 2020-04-15 20:58 | CONS ---
CONSULTATION This is a 64-year-old white male who fell off a deck about 7 days ago after he came in from [place], had several rib fractures, admitted for chronic pain, unable to move his left arm. He has atrial fibrillation, sleep apnea, status post PEG tube. He has deafness, hypertension, heart failure, COPD, carbon monoxide poisoning. He has a trach hole, has a Band-Aid over it during the day. He has nasal oxygen at night, wears CPAP. Hypothyroidism. Surgeries are back surgery, cholecystectomy, orthopedic surgery, PEG tube placement. He has had laparoscopic Maximilian fundoplication, lap cholecystectomy. He is independent, uses home oxygen with 2 L oxygen at night. He never smokes, does marijuana. Family history is positive for a sister with cancer of the uterus, mother with coronary artery disease. Home medicines are: 1. Lasix 20 daily. 2. Lipitor 20 daily. 3. Xarelto 20 daily. 4. Aldactone 25 daily. 5. Flomax 0.4 daily. 6. Metoprolol ER 50 daily. 7. Xanax 0.25 b.i.d. 8. Flexeril 5 mg daily. 9. Olin 10/325 t.i.d. 10.Zestril 2.5 daily. 11.Magonate 500 daily. ALLERGIES: PENICILLIN, ZOSYN, PREDNISONE. PHYSICAL EXAMINATION: Pulse 90 to 94, respiratory rate 16 to 18. Blood pressure was 113/73, oxygenation 93%, temp 99.2. CARDIOVASCULAR: S1, S2. LUNGS: Tracheostomy sounds. Mild wheeze x4. CARDIOVASCULAR: S1, S2. MUSCULOSKELETAL: Non-tender over the chest wall. ABDOMEN: Distended, obese. EXTREMITIES: Two plus edema. Labs are reviewed. ASSESSMENT AND PLAN: 1. Multiple left rib fractures, fifth through tenth. 2. Small left pleural effusion. Pain control. Incentive spirometry. Continue home medicines. Monitor for signs of aspiration pneumonia. MMODL / IJN: [id number] /
[2020-04-16] MEDS: HYDROcodone/APAP 5-325MG 1 EACH TAB PO PRN ×3 (02:20→23:32)
--- NOTE | 2020-04-16 08:55 | XR ---
EXAMINATION TYPE: XR chest 2V DATE OF EXAM: 04/16/2020 COMPARISON: 03/28/2019 INDICATION: Chest trauma, difficulty breathing TECHNIQUE: Frontal and lateral views of the chest are obtained. FINDINGS: The heart size is mildly prominent. The pulmonary vasculature is normal. There is some mild left lower lobe infiltrate. Correlate for atelectasis. Developing pneumonia could be considered.. No pneumothorax is evident. IMPRESSION: 1. No acute posttraumatic changes. 2. Suspected atelectasis or pneumonia left lung base
[2020-04-16] MEDS: SODIUM CHLORIDE 0.9% 1,000 ML IV SCH (09:25)
[2020-04-16] MEDS: FUROSEMIDE 20 MG TAB PO SCH (12:26)
[2020-04-16] MEDS: METOPROLOL SUCCINATE (ER) 50 MG TAB.ER.24H PO SCH (12:26)
[2020-04-16] MEDS: CALCIUM CARB-VIT D 500MG-200UN 1 EACH TAB PO SCH (12:26)
[2020-04-16] MEDS: ALPRAZolam 0.25 MG TAB PO SCH ×2 (12:26→20:28)
[2020-04-16] MEDS: TAMSULOSIN 0.4 MG CAP.ER.24H PO SCH (12:26)
[2020-04-16] MEDS: ATORVASTATIN 20 MG TAB PO SCH (13:13)
[2020-04-16] MEDS: SPIRONOLACTONE 25 MG TAB PO SCH (13:13)
--- NOTE | 2020-04-16 14:46 | P.PN ---
Progress Note - Text Progress Note Date: 04/16/20 The patient is resting in his chair. He still has complaints of significant left-sided chest wall pain. On exam vital signs appear stable. Chest is clear. Abdomen soft nontender Multiple left rib fractures. Patient may receive supportive care. Discharge the next 24 hours.
[2020-04-16] MEDS: HYDROcodone/APAP 10-325MG 1 EACH TAB PO PRN (16:20)
[2020-04-16] MEDS: MAGNESIUM OXIDE 400 MG TAB PO SCH (20:28)
[2020-04-16] MEDS: RIVAROXABAN 20 MG TAB PO SCH (20:28)
--- NOTE | 2020-04-16 23:35 | PN ---
PROGRESS NOTE Everardo Charles wants to go to [facility] for physical therapy. He is having no chest pain, shortness of breath. No lightheadedness, dizziness, syncope. CARDIOVASCULAR: Irregular, irregular rhythm. LUNGS: Clear. GI: Soft. MUSCULOSKELETAL: moving more over his head, with limited left rib pain, which is improved. ASSESSMENT: 1. Multiple rib fractures. 2. Chronic obstructive pulmonary disease. 3. Congestive heart failure. Continue current treatments. PT, OT. Possible rehab placement. MMODL / IJN: [id number] /
[2020-04-17] MEDS: HYDROcodone/APAP 10-325MG 1 EACH TAB PO PRN ×2 (06:53→20:30)
[2020-04-17 07:03] LABS: HCT 41.1 % (39.0-53.0); HGB 13.3 gm/dL (13.0-17.5); MCH 30.7 pg (25.0-35.0); MCHC 32.5 g/dL (31.0-37.0); MCV 94.7 fL (80.0-100.0); Mean Platelet Volume 7.3; Platelet Count 247 k/uL (150-450); RBC 4.34 m/uL (4.30-5.90); RDW 12.7 % (11.5-15.5); WBC 10.8 k/uL (3.8-10.6)
[2020-04-17 07:43] LABS: Albumin 3.3 g/dL (3.5-5.0); Calcium 8.1 mg/dL (8.4-10.2); Potassium 4.6 mmol/L (3.5-5.1); Total Bilirubin 0.6 mg/dL (0.2-1.3); Total Protein 6.3 g/dL (6.3-8.2)
[2020-04-17] MEDS: ALPRAZolam 0.25 MG TAB PO SCH ×2 (09:30→20:30)
[2020-04-17] MEDS: METOPROLOL SUCCINATE (ER) 50 MG TAB.ER.24H PO SCH (09:30)
[2020-04-17] MEDS: TAMSULOSIN 0.4 MG CAP.ER.24H PO SCH (09:30)
[2020-04-17] MEDS: CALCIUM CARB-VIT D 500MG-200UN 1 EACH TAB PO SCH (09:31)
[2020-04-17] MEDS: FUROSEMIDE 20 MG TAB PO SCH (09:31)
--- NOTE | 2020-04-17 11:59 | P.PN ---
Progress Note - Text Progress Note Date: 04/17/20 Patient still has complaints of significant left chest wall pain. On exam vital signs are stable. A shunt has significant left chest wall pain.. Abdomen soft. We will plan for discharge home the next 24-48 hours.
[2020-04-17] MEDS: ATORVASTATIN 20 MG TAB PO SCH (15:43)
[2020-04-17] MEDS: SPIRONOLACTONE 25 MG TAB PO SCH (15:43)
[2020-04-17] MEDS: SODIUM CHLORIDE 0.9% 1,000 ML IV SCH (20:24)
[2020-04-17] MEDS: MAGNESIUM OXIDE 400 MG TAB PO SCH (20:30)
[2020-04-17] MEDS: RIVAROXABAN 20 MG TAB PO SCH (20:30)
[2020-04-18] MEDS: HYDROcodone/APAP 10-325MG 1 EACH TAB PO PRN ×3 (05:20→20:12)
[2020-04-18] MEDS: CALCIUM CARB-VIT D 500MG-200UN 1 EACH TAB PO SCH (08:39)
[2020-04-18] MEDS: ALPRAZolam 0.25 MG TAB PO SCH ×2 (08:39→20:12)
[2020-04-18] MEDS: TAMSULOSIN 0.4 MG CAP.ER.24H PO SCH (08:40)
[2020-04-18] MEDS: METOPROLOL SUCCINATE (ER) 50 MG TAB.ER.24H PO SCH (08:40)
[2020-04-18] MEDS: FUROSEMIDE 20 MG TAB PO SCH (08:40)
[2020-04-18] MEDS: SODIUM CHLORIDE 0.9% 1,000 ML IV SCH (10:09)
--- NOTE | 2020-04-18 10:58 | PN ---
PROGRESS NOTE DATE OF SERVICE: 04/17/2020 A 64-year-old white male who has multiple broken ribs from a fall. States his breathing is a little bit improved. He has much less chest wall pain. He wants to go home. He does want to go to the group home. Vital signs are stable, afebrile. CARDIOVASCULAR: S1, S2. LUNGS: Fairly clear. GI: Soft. HEMATOLOGIC: Negative Homans. ASSESSMENT: Multiple left rib fractures. History of obstructive sleep apnea, trach placement, CHF, COPD, possible discharge in the next 24 to 48 hours. He is doing much better. His pain is much improved. He is using incentive spirometer. No signs of any infection at this point. White count os 10.8. Sodium is 137, potassium 4.6. His hypoalbuminemia, which will need increased protein drinks and continue his home medications. Possible discharge home. MMODL / IJN: [id number] /
[2020-04-18] MEDS: SPIRONOLACTONE 25 MG TAB PO SCH (13:04)
[2020-04-18] MEDS: ATORVASTATIN 20 MG TAB PO SCH (13:04)
--- NOTE | 2020-04-18 13:45 | P.PN ---
Progress Note - Text Progress Note Date: 04/18/20 Patient still complaining of significant left chest wall pain. He has trouble ambulating with his walker. On exam vital signs are stable. Left chest wall is tender. Abdomen soft. Multiple left rib fractures Patient will be most likely discharge home tomorrow.
--- NOTE | 2020-04-18 13:46 | P.PN ---
Progress Note - Text Progress Note Date: 04/18/20
--- NOTE | 2020-04-18 15:03 | P.CNPUL ---
History of Present Illness Consult date: 04/18/20 Reason for consult: dyspnea, cough, chest pain Chief complaint: Status post fall with rib fracture and chest pain History of present illness: This is a 64-year-old male well-known to me with history of COPD, congestive h eart failure, and obstructive sleep apnea with history of chronic renal failure recovered, patient came into the hospital when he slipped from his walker and fell down on the floor developed severe left-sided chest pain came into the hospital for further evaluation, his CT scan of the chest continue to show tracheal stoma, small left-sided pleural effusion was seen along with multiple rib fracture on the left side fifth to 10th, fifth 6 and seventh ribs were broken at 2 places, Review of Systems All systems: negative Past Medical History Past Medical History: Atrial Fibrillation, Heart Failure, Hearing Disorder / Deafness, Hypertension, Respiratory Disorder, Sleep Apnea/CPAP/BIPAP Additional Past Medical History / Comment(s): HX OF TRACH 2008 (SEVER CHF),STATES REMOVED AND IN 2011 HE HAD CARBON MONOXIDE POISONING AND TRACH REINSERTED. TRACH NOW REMOVED BUT STATES HOLE IS STILL OPEN, APPLIES BANDAID OVER IT DURING THE DAY. NASAL O2 AT 2 LITERS AT NIGHT. NO USE OF CPAP WHILE TRACH SITE IS OPEN. PAST HX OF LOW THYROID, NO MEDS NOW. BACK PAIN. STATES HIATAL HERNIA. History of Any Multi-Drug Resistant Organisms: None Reported Past Surgical History: Back Surgery, Cholecystectomy, Orthopedic Surgery Additional Past Surgical History / Comment(s): 05/09/17 RIGHT TOTAL HIP. 07/02/16 laparoscopic chantale fundoplication/lap junior. Other surgical hx: hand surg., skin graft right leg, multiple insertion/removal tracheostomy tube. pt stated gull bladder removal in 2016 Past Anesthesia/Blood Transfusion Reactions: No Reported Reaction Past Psychological History: Anxiety Additional Psychological History / Comment(s): Pt resides alone. He is independent. He uses home O2 at 2L at night. Smoking Status: Never smoker Past Alcohol Use History: None Reported Past Drug Use History: Marijuana Additional Drug Use History / Comment(s): NO MARIJUANA IN 10 YEARS - Past Family History Sister(s) Family Medical History: Cancer Additional Family Medical History / Comment(s): UTERINE CANCER Mother Family Medical History: Coronary Artery Disease (CAD) Additional Family Medical History / Comment(s): Mother at the age of 72 yrs. Medications and Allergies Home Medications Medication Instructions Recorded Confirmed Type Furosemide [Lasix] 20 mg PO QAM 07/10/14 04/15/20 History Atorvastatin [Lipitor] 20 mg PO DAILY@1400 05/14/16 04/15/20 History Rivaroxaban [Xarelto] 20 mg PO HS 05/14/16 04/15/20 History Spironolactone [Aldactone] 25 mg PO DAILY@1400 05/14/16 04/15/20 History Tamsulosin [Flomax] 0.4 mg PO DAILY 03/23/19 04/15/20 History Metoprolol Succinate (ER) [Toprol 50 mg PO DAILY 03/27/19 04/15/20 History XL] ALPRAZolam [Xanax] 0.25 mg PO BID 04/15/20 04/15/20 History Calcium Carbonate/Vitamin D3 1 tab PO DAILY 04/15/20 04/15/20 History [Calcium 600-Vit D3 400 Tablet] Cyclobenzaprine [Flexeril] 5 mg PO DAILY PRN 04/15/20 04/15/20 History HYDROcodone/APAP 10-325MG [[place] 1 tab PO TID PRN 04/15/20 04/15/20 History 10-325] Lisinopril [Zestril] 2.5 mg PO DAILY@1400 04/15/20 04/15/20 History Magnesium Gluconate [Magonate] 500 mg PO 04/15/20 04/15/20 History Allergies Allergy/AdvReac Type Severity Reaction Status Date / Time Latex, Natural Rubber Allergy Rash/Hives Verified 04/15/20 08:47 Penicillins Allergy eye Verified 04/15/20 08:47 swelling piperacillin sodium Allergy Rash/Hives Verified 04/15/20 08:47 [From Zosyn] tazobactam sodium Allergy Rash/Hives Verified 04/15/20 08:47 [From Zosyn] prednisone AdvReac muscle Verified 04/15/20 08:47 spasms Physical Exam Vitals: Vital Signs Temp Pulse Resp BP Pulse Ox 04/18/20 11:32 109 H 18 04/18/20 11:31 97.7 F 109 H 18 147/55 90 L 04/18/20 08:36 98.2 F 113 H 18 134/82 90 L 04/18/20 08:00 113 H 18 04/18/20 03:59 98.1 F 87 18 114/76 95 04/18/20 00:00 98.6 F 90 18 101/69 93 L 04/17/20 20:00 98.3 F 98 20 110/75 96 04/17/20 16:00 89 18 98/68 94 L Intake and Output 04/17/20 04/18/20 04/18/20 22:59 06:59 14:59 Intake Total 240 240 20 Output Total 500 Balance -260 240 20 Intake: IV 20 Sodium Chloride 0.9% 1, 20 000 ml @ 20 mls/hr IV . Q24H [facility] Rx#:[id number] Oral 240 240 Output: Urine 500 Other: Voiding Method Toilet Toilet # Voids 1 2 # Bowel Movements 1 Weight 117.5 kg - Constitutional General appearance: disheveled, morbidly obese - EENT Eyes: EOMI, PERRLA Ears: bilateral: normal - Neck Neck: normal ROM Carotids: bilateral: upstroke normal - Respiratory Respiratory: bilateral: diminished - Cardiovascular Rhythm: regular Heart sounds: normal: S1, S2 - Gastrointestinal General gastrointestinal: normal bowel sounds - Neurologic Neurologic: CNII-XII intact - Musculoskeletal Musculoskeletal: gait normal, generalized weakness, strength equal bilaterally - Psychiatric Psychiatric: A&O x's 3, appropriate affect, intact judgment & insight Results - Laboratory Findings CBC and BMP: 04/17/20 06:28 04/17/20 06:28 PT/INR, D-dimer PT 12.0 sec (9.0-12.0) 04/15/20 09:32 INR 1.2 (<1.2) H 04/15/20 09:32 Abnormal lab findings: Abnormal Labs 04/15/20 04/15/20 04/15/20 09:32 09:32 09:32 WBC 12.7 H Neutrophils # 10.0 H INR 1.2 H APTT 30.8 H Carbon Dioxide Glucose 130 H Calcium Albumin 04/17/20 04/17/20 06:28 06:28 WBC 10.8 H Neutrophils # INR APTT Carbon Dioxide 32 H Glucose 129 H Calcium 8.1 L Albumin 3.3 L - Diagnostic Findings CT scan - chest: report reviewed (Finding as noted above), image reviewed (Finding as noted above) Assessment and Plan Assessment: Status post fall with multiple rib fractures on the left side COPD end stage History of respiratory failure in been dependency requiring tracheostomy with persistent stoma Hypertension hypertensive cardiovascular disease Chronic atrial fibrillation Morbid obesity Obstructive sleep apnea Plan: Continue pain management Deep breathing exercises incentive spirometry Follow-up as outpatient Time with Patient: Greater than 30
[2020-04-18] MEDS: MAGNESIUM OXIDE 400 MG TAB PO SCH (20:12)
[2020-04-18] MEDS: RIVAROXABAN 20 MG TAB PO SCH (20:12)
[2020-04-19] MEDS: HYDROcodone/APAP 10-325MG 1 EACH TAB PO PRN ×3 (04:07→20:10)
[2020-04-19] MEDS: SODIUM CHLORIDE 0.9% 1,000 ML IV SCH (08:41)
[2020-04-19] MEDS: FUROSEMIDE 20 MG TAB PO SCH (08:44)
[2020-04-19] MEDS: METOPROLOL SUCCINATE (ER) 50 MG TAB.ER.24H PO SCH (08:44)
[2020-04-19] MEDS: TAMSULOSIN 0.4 MG CAP.ER.24H PO SCH (08:44)
[2020-04-19] MEDS: ALPRAZolam 0.25 MG TAB PO SCH ×2 (08:44→20:10)
[2020-04-19] MEDS: CALCIUM CARB-VIT D 500MG-200UN 1 EACH TAB PO SCH (08:44)
--- NOTE | 2020-04-19 10:33 | P.PN ---
Subjective Progress Note Date: 04/19/20 Principal diagnosis: Status post fall with multiple rib fractures on the left side COPD end stage History of respiratory failure in been dependency requiring tracheostomy with persistent stoma Hypertension hypertensive cardiovascular disease Chronic atrial fibrillation Morbid obesity Obstructive sleep apnea 04/19/2020, patient seen eval examined during the rounds labs reviewed medications reviewed care plan discussed, patient is still have chest pain but severity has improved, patient feels almost back to baseline, denies any cough or sputum production complain of left-sided pleuritic chest pain since the fall and rib fractures slightly improved however, patient has some atelectasis at the left base has been doing deep breathing exercise white cell count is normalized now remains afebrile being monitor observe off of antibiotics This is a 64-year-old male well-known to me with history of COPD, congestive heart failure, and obstructive sleep apnea with history of chronic renal failure recovered, patient came into the hospital when he slipped from his walker and fell down on the floor developed severe left-sided chest pain came into the hospital for further evaluation, his CT scan of the chest continue to show tracheal stoma, small left-sided pleural effusion was seen along with multiple rib fracture on the left side fifth to 10th, fifth 6 and seventh ribs were broken at 2 places, Objective - Vital Signs Vital signs: Vital Signs Temp 98 F 04/19/20 08:00 Pulse 113 H 04/19/20 08:00 Resp 18 04/19/20 08:00 BP 110/65 04/19/20 08:00 Pulse Ox 90 L 04/19/20 08:00 Intake & Output 04/18/20 04/19/20 04/19/20 18:59 06:59 18:59 Intake Total 20 540 Output Total 600 250 Balance -580 290 Weight 117 kg Intake: IV 20 Sodium Chloride 0.9% 1, 20 000 ml @ 20 mls/hr IV . Q24H [facility] Rx#:[id number] Oral 540 Output: Urine 600 250 Other: Voiding Method Toilet Toilet # Voids 1 - Exam - Constitutional General appearance: disheveled, morbidly obese - EENT Eyes: EOMI, PERRLA Ears: bilateral: normal - Neck Neck: normal ROM Carotids: bilateral: upstroke normal - Respiratory Respiratory: bilateral: diminished - Cardiovascular Rhythm: regular Heart sounds: normal: S1, S2 - Gastrointestinal General gastrointestinal: normal bowel sounds - Neurologic Neurologic: CNII-XII intact - Musculoskeletal Musculoskeletal: gait normal, generalized weakness, strength equal bilaterally - Psychiatric Psychiatric: A&O x's 3, appropriate affect, intact judgment & insight - Labs CBC & Chem 7: 04/17/20 06:28 04/17/20 06:28 Assessment and Plan Assessment: Left lower lobe atelectasis due to multiple rib fractures Status post fall with multiple rib fractures on the left side COPD end stage History 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
--- NOTE | 2020-04-19 12:26 | PN ---
PROGRESS NOTE DATE OF SERVICE: 04/18/2020 INTERVAL HISTORY: A 64-year-old white male, multiple rib fractures, some fluid at the base of the lungs. Pulmonary is seeing him. Surgeon is seeing him. Possible rehab placement due to difficulty taking care of himself and doing ADLs at home. He will be sent on Tuesday. We are trying to improve his breathing and his pain control. PHYSICAL EXAMINATION: Lungs are decreased breath sounds at the bases. CARDIOVASCULAR: S1, S2. Musculoskeletal: He has tenderness to palpation on the very left T4 laterally, T4, T5, ribs. Psych fair mood and affect. ASSESSMENT: Multiple rib fractures, pleural effusion, history of asthma. PLAN: Continue with breathing treatments. Incentive spirometry. Follow up in the next 24 to 48 hours for possible discharge. PT OT recommendations. Continue with pulmonary recommendations. MMODL / IJN: [id number] /
--- NOTE | 2020-04-19 13:18 | P.PN ---
Subjective Progress Note Date: 04/19/20 Principal diagnosis: Rib fractures Patient doing well today. Still complaining of pain. Mild tachycardia. No labs today. Pulmonary evaluation noted. Denies shortness of breath currently. Objective - Vital Signs Vital signs: Vital Signs Temp 97.6 F 04/19/20 12:00 Pulse 104 H 04/19/20 12:00 Resp 18 04/19/20 12:00 BP 122/69 04/19/20 12:00 Pulse Ox 92 L 04/19/20 12:00 Intake & Output 04/18/20 04/19/20 04/19/20 18:59 06:59 18:59 Intake Total 20 540 Output Total 600 250 600 Balance -580 290 -600 Weight 117 kg Intake: IV 20 Sodium Chloride 0.9% 1, 20 000 ml @ 20 mls/hr IV . Q24H [facility] Rx#:[id number] Oral 540 Output: Urine 600 250 600 Other: Voiding Method Toilet Toilet # Voids 1 - Exam Left chest tenderness noted Abdomen: Soft, nontender, nondistended - Labs CBC & Chem 7: 04/17/20 06:28 04/17/20 06:28 Assessment and Plan (1) Ribs, multiple fractures Narrative/Plan: Patient still having discomfort. We'll resume his home scheduled narcotics. Continue pulmonary toilet. Possible discharge tomorrow. Current Visit: Yes Status: Acute Code(s): S22.49XA - MULTIPLE FRACTURES OF RIBS, UNSP SIDE, INIT FOR CLOS FX SNOMED Code(s): 9193866
[2020-04-19] MEDS: ATORVASTATIN 20 MG TAB PO SCH (13:31)
[2020-04-19] MEDS: SPIRONOLACTONE 25 MG TAB PO SCH (13:31)
[2020-04-19] MEDS: MAGNESIUM OXIDE 400 MG TAB PO SCH (20:10)
[2020-04-19] MEDS: RIVAROXABAN 20 MG TAB PO SCH (20:10)
[2020-04-20] MEDS: HYDROcodone/APAP 10-325MG 1 EACH TAB PO PRN ×4 (02:33→21:04)
[2020-04-20] MEDS: FUROSEMIDE 20 MG TAB PO SCH (08:08)
[2020-04-20] MEDS: CALCIUM CARB-VIT D 500MG-200UN 1 EACH TAB PO SCH (08:08)
[2020-04-20] MEDS: ALPRAZolam 0.25 MG TAB PO SCH ×2 (08:08→21:04)
[2020-04-20] MEDS: TAMSULOSIN 0.4 MG CAP.ER.24H PO SCH (08:09)
[2020-04-20] MEDS: METOPROLOL SUCCINATE (ER) 50 MG TAB.ER.24H PO SCH (08:09)
[2020-04-20] MEDS: SODIUM CHLORIDE 0.9% 1,000 ML IV SCH (09:57)
--- NOTE | 2020-04-20 10:37 | P.PN ---
Subjective Progress Note Date: 04/20/20 Principal diagnosis: Rib fractures Patient says his pain is improved after increasing [place] 2 every 6. Still complaining of chest tenderness. Pain with deep inspiration. No shortness of breath. Objective - Vital Signs Vital signs: Vital Signs Temp 97.9 F 04/20/20 07:40 Pulse 101 H 04/20/20 08:00 Resp 18 04/20/20 07:40 BP 134/87 04/20/20 07:40 Pulse Ox 96 04/20/20 07:40 Intake & Output 04/19/20 04/20/20 04/20/20 18:59 06:59 18:59 Intake Total 540 240 Output Total 1100 300 Balance -1100 240 240 Weight 117 kg Intake: Oral 540 240 Output: Urine 1100 300 Other: Voiding Method Toilet Toilet # Bowel Movements 1 - Exam Abdomen: Soft, nondistended, nontender Chest: Mild tenderness noted - Labs CBC & Chem 7: 04/17/20 06:28 04/17/20 06:28 Assessment and Plan (1) Ribs, multiple fractures Narrative/Plan: Patient improving. Continue pulmonary toilet and incentive spirometry. Apparently plans are underway for outpatient rehab. Current Visit: Yes Status: Acute Code(s): S22.49XA - MULTIPLE FRACTURES OF RIBS, UNSP SIDE, INIT FOR CLOS FX SNOMED Code(s): 2953926
--- NOTE | 2020-04-20 10:50 | PN ---
PROGRESS NOTE 64-year-old white male with multiple rib fractures and poor gait imbalance, possibly go the snf on Tuesday due to poor ambulation, difficulty using his left arm compared normal due to the rib fracture pain. Cardiovascular S1-S2. Lungs clear. GI soft. Hematology negative Homans. Psych: Fair mood and affect. Musculoskeletal: Decreased pain in the ribs. ASSESSMENT: 1. Rib fractures. 2. Pleural effusion. PROGNOSIS: Guarded. See further orders summary. MMODL / IJN: [id number] /
[2020-04-20] MEDS: ATORVASTATIN 20 MG TAB PO SCH (14:30)
[2020-04-20] MEDS: SPIRONOLACTONE 25 MG TAB PO SCH (14:30)
[2020-04-20] MEDS: RIVAROXABAN 20 MG TAB PO SCH (21:04)
[2020-04-20] MEDS: MAGNESIUM OXIDE 400 MG TAB PO SCH (21:04)
[2020-04-21] MEDS: HYDROcodone/APAP 10-325MG 1 EACH TAB PO PRN ×2 (05:52→11:26)
[2020-04-21] MEDS: FUROSEMIDE 20 MG TAB PO SCH (08:02)
[2020-04-21] MEDS: METOPROLOL SUCCINATE (ER) 50 MG TAB.ER.24H PO SCH (08:02)
[2020-04-21] MEDS: ALPRAZolam 0.25 MG TAB PO SCH (08:02)
[2020-04-21] MEDS: CALCIUM CARB-VIT D 500MG-200UN 1 EACH TAB PO SCH (08:02)
[2020-04-21] MEDS: TAMSULOSIN 0.4 MG CAP.ER.24H PO SCH (08:02)
[2020-04-21] MEDS: SODIUM CHLORIDE 0.9% 1,000 ML IV SCH (08:08)
[2020-04-21 13:09] VITALS: BMI 38.2
[2020-04-21 13:30] VITALS: RESP 19
--- NOTE | 2020-04-21 13:43 | P.DS ---
Providers Date of admission: 04/15/20 08:35 Expected date of discharge: 04/21/20 Attending physician: Andre Clayton Consults: 04/15/20 08:37 Consult Physician Routine Consulting Provider: Jan Foster Consult Reason/Comments: medicine consult Do you want consulting provider notified?: Yes 04/15/20 12:00 Consult Physician Routine Consulting Provider: Jean Acosta Consult Reason/Comments: Left rib fractures Do you want consulting provider notified?: Yes [facility] Course: This is a 64-year-old male who was admitted to the hospital multiple left rib fractures. Patient had issues with pain related to his rib fractures. Please see hospital chart for details. Patient Condition at Discharge: Fair Plan - Discharge Summary Discharge Rx Participant: Yes New Discharge Prescriptions: No Action Furosemide [Lasix] 20 mg PO QAM Spironolactone [Aldactone] 25 mg PO DAILY@1400 Rivaroxaban [Xarelto] 20 mg PO HS Atorvastatin [Lipitor] 20 mg PO DAILY@1400 Tamsulosin [Flomax] 0.4 mg PO DAILY Metoprolol Succinate (ER) [Toprol XL] 50 mg PO DAILY ALPRAZolam [Xanax] 0.25 mg PO BID Calcium Carbonate/Vitamin D3 [Calcium 600-Vit D3 400 Tablet] 1 tab PO DAILY Magnesium Gluconate [Magonate] 500 mg PO HS Lisinopril [Zestril] 2.5 mg PO DAILY@1400 HYDROcodone/APAP 10-325MG [Homeland 10-325] 1 tab PO TID PRN PRN Reason: Pain Cyclobenzaprine [Flexeril] 5 mg PO DAILY PRN PRN Reason: Muscle Spasm Discharge Medication List Furosemide [Lasix] 20 mg PO QAM 07/10/14 [History] Atorvastatin [Lipitor] 20 mg PO DAILY@1400 05/14/16 [History] Rivaroxaban [Xarelto] 20 mg PO HS 05/14/16 [History] Spironolactone [Aldactone] 25 mg PO DAILY@1400 05/14/16 [History] Tamsulosin [Flomax] 0.4 mg PO DAILY 03/23/19 [History] Metoprolol Succinate (ER) [Toprol XL] 50 mg PO DAILY 03/27/19 [History] ALPRAZolam [Xanax] 0.25 mg PO BID 04/15/20 [History] Calcium Carbonate/Vitamin D3 [Calcium 600-Vit D3 400 Tablet] 1 tab PO DAILY 04/15/20 [History] Cyclobenzaprine [Flexeril] 5 mg PO DAILY PRN 04/15/20 [History] HYDROcodone/APAP 10-325MG [Homeland 10-325] 1 tab PO TID PRN 04/15/20 [History] Lisinopril [Zestril] 2.5 mg PO DAILY@1400 04/15/20 [History] Magnesium Gluconate [Magonate] 500 mg PO HS 04/15/20 [History] Follow up Appointment(s)/Referral(s): Jan Foster MD [Primary Care Provider] - 1-2 days Jean Acosta MD [STAFF PHYSICIAN] - 1 Week Discharge Disposition: HOME SELF-CARE
--- NOTE | 2020-04-21 14:59 | P.PN ---
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 Hypertension hypertensive cardiovascular disease Chronic atrial fibrillation Morbid obesity Obstructive sleep apnea 04/20/2020, patient seen eval examined during the rounds overall has been doing well sitting upright on the chair breathing comfortably patient is still have chest pain related to fracture and fall however intensity has improved, her respiratory status continued to improve, patient is being planned for placement in extended care facility 04/19/2020, patient seen eval examined during the rounds labs reviewed medications reviewed care plan discussed, patient is still have chest pain but severity has improved, patient feels almost back to baseline, denies any cough or sputum production complain of left-sided pleuritic chest pain since the fall and rib fractures slightly improved however, patient has some atelectasis at the left base has been doing deep breathing exercise white cell count is normalized now remains afebrile being monitor observe off of antibiotics This is a 64-year-old male well-known to me with history of COPD, congestive heart failure, and obstructive sleep apnea with history of chronic renal failure recovered, patient came into the hospital when he slipped from his walker and fell down on the floor developed severe left-sided chest pain came into the hospital for further evaluation, his CT scan of the chest continue to show tracheal stoma, small left-sided pleural effusion was seen along with multiple rib fracture on the left side fifth to 10th, fifth 6 and seventh ribs were broken at 2 places, Objective - Vital Signs Vital signs: Temperature 97.9, pulse 101, respiratory rate 18, blood pressure 134/87, saturation 96% Vital Signs Intake & Output - Exam - Constitutional General appearance: disheveled, morbidly obese - EENT Eyes: EOMI, PERRLA Ears: bilateral: normal - Neck Neck: normal ROM Carotids: bilateral: upstroke normal - Respiratory Respiratory: bilateral: diminished - Cardiovascular Rhythm: regular Heart sounds: normal: S1, S2 - Gastrointestinal General gastrointestinal: normal bowel sounds - Neurologic Neurologic: CNII-XII intact - Musculoskeletal Musculoskeletal: gait normal, generalized weakness, strength equal bilaterally - Psychiatric Psychiatric: A&O x's 3, appropriate affect, intact judgment & insight - Labs CBC & Chem 7: 04/17/20 06:28 04/17/20 06:28 Assessment and Plan Assessment: Left lower lobe atelectasis due to multiple rib fractures Status post fall with multiple rib fractures on the left side COPD end stage History 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
--- NOTE | 2020-04-21 15:00 | P.PN ---
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 Hypertension hypertensive cardiovascular disease Chronic atrial fibrillation Morbid obesity Obstructive sleep apnea 04/21/2020, patient seen eval examined during the rounds he remains afebrile and occasional cough is present breathing comfortably pain is significantly improved however some pain is present during deep breathing, patient remains on [place] as needed, afebrile hemodynamically stable, patient is being planned for placement [facility] later on today 04/20/2020, patient seen eval examined during the rounds overall has been doing well sitting upright on the chair breathing comfortably patient is still have chest pain related to fracture and fall however intensity has improved, her respiratory status continued to improve, patient is being planned for placement in extended care facility 04/19/2020, patient seen eval examined during the rounds labs reviewed medications reviewed care plan discussed, patient is still have chest pain but severity has improved, patient feels almost back to baseline, denies any cough or sputum production complain of left-sided pleuritic chest pain since the fall and rib fractures slightly improved however, patient has some atelectasis at the left base has been doing deep breathing exercise white cell count is normalized now remains afebrile being monitor observe off of antibiotics This is a 64-year-old male well-known to me with history of COPD, congestive heart failure, and obstructive sleep apnea with history of chronic renal failure recovered, patient came into the hospital when he slipped from his walker and fell down on the floor developed severe left-sided chest pain came into the hospital for further evaluation, his CT scan of the chest continue to show tracheal stoma, small left-sided pleural effusion was seen along with multiple rib fracture on the left side fifth to 10th, fifth 6 and seventh ribs were broken at 2 places, Objective - Vital Signs Vital signs: Vital Signs Temp 98.1 F 04/21/20 12:00 Pulse 83 04/21/20 12:00 Resp 19 04/21/20 12:00 BP 109/74 04/21/20 12:00 Pulse Ox 96 04/21/20 12:00 Intake & Output 04/20/20 04/21/20 04/21/20 18:59 06:59 18:59 Intake Total 480 640 Output Total 280 Balance 480 -280 640 Weight 117.5 kg 117.5 kg Intake: Oral 480 640 Output: Urine 280 Other: Voiding Method Toilet Toilet Toilet # Voids 1 0 4 # Bowel Movements 1 - Exam - Constitutional General appearance: disheveled, morbidly obese - EENT Eyes: EOMI, PERRLA Ears: bilateral: normal - Neck Neck: normal ROM Carotids: bilateral: upstroke normal - Respiratory Respiratory: bilateral: diminished - Cardiovascular Rhythm: regular Heart sounds: normal: S1, S2 - Gastrointestinal General gastrointestinal: normal bowel sounds - Neurologic Neurologic: CNII-XII intact - Musculoskeletal Musculoskeletal: gait normal, generalized weakness, strength equal bilaterally - Psychiatric Psychiatric: A&O x's 3, appropriate affect, intact judgment & insight - Labs CBC & Chem 7: 04/17/20 06:28 07 06:28 Assessment and Plan Assessment: Left lower lobe atelectasis due to multiple rib fractures Status post fall with multiple rib fractures on the left side COPD end stage History 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
[2020-04-21] MEDS: SPIRONOLACTONE 25 MG TAB PO SCH (15:21)
[2020-04-21] MEDS: ATORVASTATIN 20 MG TAB PO SCH (15:21)
[2020-04-21 16:06] VITALS: BP 106/72; PULSE 93; TEMP 98.3
== END 2020-04-21 16:51 | DRG 184 ==
LOC: EC 07:05 → 3SCARD 08:35
PROVIDERS: ADMIT Surgery; ATTEND Surgery
DX: S22.42XA Multiple fractures of ribs, left side, initial encounter for closed fracture (principal); I48.20 Chronic atrial fibrillation, unspecified; J98.11 Atelectasis; Z11.59 Encounter for screening for other viral diseases; E88.09 Other disorders of plasma-protein metabolism, not elsewhere classified; Z93.0 Tracheostomy status; I11.0 Hypertensive heart disease with heart failure; I50.9 Heart failure, unspecified; J44.9 Chronic obstructive pulmonary disease, unspecified; E66.01 Morbid (severe) obesity due to excess calories; H91.90 Unspecified hearing loss, unspecified ear; G47.33 Obstructive sleep apnea (adult) (pediatric); E03.9 Hypothyroidism, unspecified; F41.9 Anxiety disorder, unspecified; G89.29 Other chronic pain; R00.0 Tachycardia, unspecified; R26.89 Other abnormalities of gait and mobility; W01.0XXA Fall on same level from slipping, tripping and stumbling without subsequent striking against object, initial encounter; Z71.3 Dietary counseling and surveillance; Z68.38 Body mass index [BMI] 38.0-38.9, adult; Z79.899 Other long term (current) drug therapy; Z79.01 Long term (current) use of anticoagulants; Z96.641 Presence of right artificial hip joint; Z90.49 Acquired absence of other specified parts of digestive tract; Z98.890 Other specified postprocedural states; Z88.0 Allergy status to penicillin; Z88.8 Allergy status to other drugs, medicaments and biological substances; Z88.1 Allergy status to other antibiotic agents; Z91.040 Latex allergy status; Z82.49 Family history of ischemic heart disease and other diseases of the circulatory system; Z80.49 Family history of malignant neoplasm of other genital organs
CPT/HCPCS: 71046; 71250; 80053; 83735; 85025; 85027; 85610; 85730; 87635; 93005; 96372; 99285

== ENCOUNTER 2020-08-26 06:02 | Day surgery (SDC) | payer MEDICARE ==
[2020-08-22 13:51] VITALS: BMI 36.9
[~2020-08-26 06:02] MED LIST changes: +CLINDAMYCIN 900 MG in DEXTROSE 5% IN WATER 50 ML IVPB ONE; -HYDROmorphone 0.5 MG/0.5 ML SYRINGE IVP PRN; -MIDAZOLAM 2 MG/2 ML VIAL IV PRN; -ONDANSETRON 4 MG/2 ML VIAL IVP ONE; -SCOPOLAMINE 1.5MG/72HR PATCH TRANSDERM ONE; +SODIUM CHLORIDE 0.9% 1,000 ML IV SCH
[2020-08-26] MEDS ORDERED: SODIUM CHLORIDE 0.9% 500 ML 500 ML IV ONE (06:20)
[2020-08-26 06:53] VITALS: RESP 16; TEMP 98.3
[2020-08-26 07:03] LABS: Glucose,Whole Blood 129 mg/dL (75-99)
[2020-08-26] MEDS ORDERED: LIDOCAINE 1% INJ 10MG/ML (20 ML MDV) ONE (07:26)
[2020-08-26] MEDS ORDERED: LIDOCAINE 1% INJ 10MG/ML (20 ML MDV) SQ ONE (07:41)
[2020-08-26] MEDS ORDERED: MIDAZOLAM 2 MG/2 ML VIAL IV ONE (07:42)
--- NOTE | 2020-08-26 08:30 | P.EPPROC ---
- EP Procedure Note Electrophysiology Procedure Note: Loop monitor implant Primary physicians: Dr. Jan Foster Continuous Improvement Analyst: Dr. Hawkins Indication: Paroxysmal atrial fibrillation RVR, on beta blockers Patient was brought to the EP lab in a fasting state. Written informed consent was obtained prior to the procedure. The left pectoral area was prepped and draped per protocol. Intravenous antibiotic was administered preoperatively. A subcutaneous Loop monitor was implanted successfully and the wound was closed per protocol. The device was programmed to detect significant lydia- arrhythmic and tachy-arrhythmic events, per protocol. Device and programming details: A. fib detection Patient underwent EP procedure under conscious sedation/moderate sedation, monitoring of the level of consciousness and physiologic parameters including but not limited to vital signs and oxygenation. Patient tolerated the procedure well without any acute complications. Start time: 741 Stop time: 853
--- NOTE | 2020-08-26 08:32 | P.PRLE ---
RE: Everardo Charles Dear Jan Everardo underwent implantation of loop monitor for A. fib management. At this point he has episodes of paroxysmal atrial fibrillation and this will help us determine the most appropriate future course of action for management of atrial fibrillation. Currently is anticoagulative and is on beta blockers Thank you for entrusting me with the care of the patient Warm regards Sincerely Ramu Hawkins
[2020-08-26 09:28] VITALS: BP 107/78; PULSE 94
== END 2020-08-26 09:13 | disposition home or self-care (01) ==
LOC: CATHEP 06:02
PROVIDERS: ATTEND Internal Medicine Clinical Cardiac Electrophysiology
DX: I48.0 Paroxysmal atrial fibrillation (principal); I42.8 Other cardiomyopathies; I25.10 Atherosclerotic heart disease of native coronary artery without angina pectoris; I10 Essential (primary) hypertension; E78.5 Hyperlipidemia, unspecified; Z79.899 Other long term (current) drug therapy; Z79.01 Long term (current) use of anticoagulants; Z88.0 Allergy status to penicillin; Z88.8 Allergy status to other drugs, medicaments and biological substances; Z91.040 Latex allergy status
CPT/HCPCS: 33285; C1764; J2250; J2001